=== PATIENT | male | born 1930 | race Caucasian/White ===

== ENCOUNTER 2018-01-26 17:10 | Emergency (ER) | payer MEDICARE, OTHER ==
[2018-01-26 17:47] LABS: URINE APPEARANCE CLEAR; URINE BILIRUBIN NEGATIVE (NEGATIVE); URINE BLOOD NEGATIVE (NEGATIVE); URINE COLOR YELLOW; URINE GLUCOSE (UA) NEGATIVE (NEGATIVE); URINE KETONE NEGATIVE (NEGATIVE); URINE LEUKOCYTE ESTERASE NEGATIVE (NEGATIVE); URINE NITRITE NEGATIVE (NEGATIVE); URINE PROTEIN NEGATIVE (NEGATIVE); URINE UROBILINOGEN 0.2 E.U./dL (0.20 - 1.00)
--- NOTE | 2018-01-26 18:16 | Emergency Department Record ---
History of Present Illness - General Chief complaint: Male Urogenital Problem Stated complaint: CANT URINATE Time Seen by Provider: 01/26/18 18:00 Source: Patient, Family Mode of Arrival: Wheelchair Limitations: No limitations - History of Present Illness Initial comments: Unable to urinate since early thins AM Pressure without fever or burning. Hx of prostate cancer under care of urologist. Onset/Timin -: Hour(s) Location: Abdomen Radiation: None Severity: Moderate Severity scale (1-10): 4 Quality: Aching Consistency: Constant Improves with: None Worsens with: None Reports: Dysuria - Related Data Sexually active: No Home Medications Medication Instructions Recorded Confirmed Last Taken Betamethasone/Propylene Glyc 15 gm TP BID 01/26/18 01/26/18 Unknown [Diprolene 0.05% Ointment] Hydrochlorothiazide [Hctz] 25 mg PO DAILY 01/26/18 01/26/18 Unknown Previous Rx's Medication Instructions Recorded Sulfamethoxazole/Trimethoprim 1 each PO BID 5 Days #10 tablet 01/26/18 [Bactrim Ds Tablet] Allergies Allergy/AdvReac Type Severity Reaction Status Date / Time iodine Allergy RASH Verified 06/23/16 22:12 Penicillins Allergy PT UNSURE Verified 01/26/18 17:20 OF REACTION Travel Screening - Travel/Exposure Within Last 30 Days Have you traveled within the last 30 days?: No Review of Systems Constitutional: Denies: Chills, Fever Eyes: Denies: Eye pain ENT: Denies: Congestion Respiratory: Denies: Cough Cardiovascular: Denies: Arrhythmia, Chest pain Endocrine: Denies: Fatigue Gastrointestinal: Denies: Abdominal pain Genitourinary: Reports: Retention, Urgency. Denies: Discharge, Dysuria, Frequency Musculoskeletal: Denies: Arthralgia Skin: Denies: Bruising Neurological: Denies: Abnormal gait Psychiatric: Denies: Anxiety Past Medical History - SOCIAL HISTORY Smoking Status: Former smoker Alcohol Use: None Drug Use: None - RESPIRATORY Hx Respiratory Disorders: Yes Hx Asthma: Yes (uses inhaler prn) Hx Bronchitis: Yes Hx Pneumonia: Yes - CARDIOVASCULAR Hx Cardio Disorders: Yes Hx Hypertension: Yes - NEURO Hx Neuro Disorders: Yes Hx Dizziness: Yes (vertigo) Hx Weakness: Yes (legs) - GI Hx GI Disorders: No Comment:: constipation - Hx Genitourinary Disorders: Yes Hx Prostate Problems: Yes (cancer no surgery) - ENDOCRINE Hx Endocrine Disorders: No - MUSCULOSKELETAL Hx Musculoskeletal Disorders: Yes Hx Arthritis: Yes Hx Gout: Yes - PSYCH Hx Psych Problems: No - HEMATOLOGY/ONCOLOGY Hx Hematology/Oncology Disorders: No Hx Cancer: Yes (prostate) Family Medical History Any Significant Family History?: No Physical Exam - General General Appearance: Alert, Oriented x3, Cooperative, Moderate distress Limitations: No limitations - Head Head exam: Atraumatic - Eye Eye exam: Normal appearance - ENT ENT exam: Normal exam - Neck Neck exam: Normal inspection - Respiratory Respiratory exam: Normal lung sounds bilaterally. negative: Rhonchi, Wheezes - Cardiovascular Cardiovascular Exam: Regular rate, Normal rhythm - GI/Abdominal GI/Abdominal exam: Soft. negative: Distended, Rebound, Tenderness - Rectal Rectal exam: Deferred - exam: negative: Circumcision, Scrotal swelling, Testicular tenderness, Urethral discharge - Extremities Extremities exam: Pedal edema. negative: Tenderness - Back Back exam: Denies: CVA tenderness (R), CVA tenderness (L) - Neurological Neurological exam: Alert, Normal gait, Oriented X3 - Psychiatric Psychiatric exam: Normal affect, Normal mood - Skin Skin exam: negative: Abrasion Course Vital Signs 01/26/18 17:18 Temperature 98.1 F Pulse Rate 89 Respiratory 20 Rate Blood Pressure 151/73 Pulse Ox 96 - Reevaluation(s) Reevaluation #1: 01/26/18 18:58 Seen on arrival with . Cath placed with return of urine and relief of discomfort. Sent to lab without infection. Instructed on use of leg bag with . Will follow with established urology in 2 days. Return here if issues. Medical Decision Making - Management Options MDM Management: No Additional Work-up Planned - Data Complexity MDM Data: Labs Ordered and/or Reviewed - Lab Data Lab Results 01/26/18 Range/Units 17:40 Urine Color Yellow Urine Appearance Clear Urine pH 7.0 (5.0-8.0) Ur Specific [place] 1.015 (1.002-1.030) Urine Protein Negative (NEGATIVE) Urine Glucose (UA) Negative (NEGATIVE) Urine Ketones Negative (NEGATIVE) Urine Blood Negative (NEGATIVE) Urine Nitrite Negative (NEGATIVE) Urine Bilirubin Negative (NEGATIVE) Urine Urobilinogen 0.2 (0.20 - 1.00) E.U./dL Ur Leukocyte Esterase Negative (NEGATIVE) Disposition Disposition: Discharge Clinical Impression: Acute urinary retention Disposition: Home, Self-Care Condition: (2) Stable Instructions: Urinary Retention in Men (ED) Additional Instructions: See urologist in 2 days Prescriptions: Sulfamethoxazole/Trimethoprim [Bactrim Ds Tablet] 1 each PO BID 5 Days #10 tablet Referrals: CLAU RAMIREZ M.D. [MEDICAL DOCTOR] - Forms: Patient Portal Access Quality - Quality Measures Quality Measures: N/A - Blood Pressure Screening Does Patient Have Any of the Following: Active Dx of HTN Blood Pressure Classification: Hypertensive Reading Systolic Measurement: 151 Diastolic Measurement: 73 Screening for High Blood Pressure: Patient Exclusion, Hx of HTN [G9744]
[2018-01-26] MEDS ORDERED: TMP/SMZ 160MG/800MG TAB PO ONE (18:49)
== END 2018-01-26 19:03 | disposition home or self-care (01) ==
LOC: ER 17:10
DX: R33.8 Other retention of urine (principal); I10 Essential (primary) hypertension; Z87.891 Personal history of nicotine dependence; Z85.46 Personal history of malignant neoplasm of prostate; E78.00 Pure hypercholesterolemia, unspecified; M10.9 Gout, unspecified; Z12.5 Encounter for screening for malignant neoplasm of prostate; Z00.00 Encounter for general adult medical examination without abnormal findings
CPT/HCPCS: 80048; 80061; 81003; 84450; 84460; 84550; 85025; 99283; G0103

== ENCOUNTER 2018-04-07 18:06 | Emergency (ER) | payer MEDICARE, OTHER ==
[2018-04-07] MEDS ORDERED: LIDOCAINE UROJECT 10 ML APPL MM ONE (18:56)
--- NOTE | 2018-04-07 19:20 | Emergency Department Record ---
History of Present Illness - General Chief complaint: Male Urogenital Problem Stated complaint: CATH PATIENT Time Seen by Provider: 04/07/18 18:39 Source: Patient Mode of Arrival: Ambulatory Limitations: No limitations - History of Present Illness Initial comments: pt here for covington placement. his home nurse tried to replace it today and was unable to get it in so he was sent to the hospital Complaint: Other Onset/Timin -: Minutes(s) Improves with: Urination Reports: Urinary retention - Related Data Sexually active: No Previous Rx's Medication Instructions Recorded Ciprofloxacin HCl [Cipro] 500 mg PO Q12HR #6 tablet 04/07/18 Allergies Allergy/AdvReac Type Severity Reaction Status Date / Time iodine Allergy RASH Verified 04/07/18 18:30 Penicillins Allergy PT UNSURE Verified 04/07/18 18:30 OF REACTION Travel Screening - Travel/Exposure Within Last 30 Days Have you traveled within the last 30 days?: No - Travel/Exposure Within Last Year Have you traveled outside the [place] in the last year?: No - Additonal Travel Details Have you been exposed to anyone with a communicable illness?: No - Travel Symptoms Symptom Screening: None Review of Systems Reviewed: No additional complaints except as noted below Constitutional: Reports: As per HPI. Denies: Chills, Fever, Malaise, Night sweats, Weakness, Weight change Eyes: Reports: As per HPI. Denies: Eye discharge, Eye pain, Photophobia, Vision change ENT: Reports: As per HPI. Denies: Congestion, Dental pain, Ear pain, Epistaxis , Hearing loss, Throat pain Respiratory: Reports: As per HPI. Denies: Cough, Dyspnea, Hemoptysis, Stridor, Wheezes Cardiovascular: Reports: As per HPI. Denies: Arrhythmia, Chest pain, Dyspnea on exertion, Edema, Murmurs, Orthopnea, Palpitations, Paroxysmal nocturnal dyspnea, Rheumatic Fever, Syncope Endocrine: Reports: As per HPI. Denies: Fatigue, Heat or cold intolerance, Polydipsia, Polyuria Gastrointestinal: Reports: As per HPI. Denies: Abdominal pain, Constipation, Diarrhea, Hematemesis, Hematochezia, Melena, Nausea, Vomiting Genitourinary: Reports: As per HPI, Retention. Denies: Dysuria, Frequency, Hematuria, Incontinence, Testicular pain, Testicular mass, Urgency Musculoskeletal: Reports: As per HPI. Denies: Arthralgia, Back pain, Gout, Joint swelling, Myalgia, Neck pain Skin: Reports: As per HPI. Denies: Bruising, Change in color, Change in hair/ nails, Lesions, Pruritus, Rash Neurological: Reports: As per HPI. Denies: Abnormal gait, Confusion, Headache, Numbness, Paresthesias, Seizure, Tingling, Tremors, Vertigo, Weakness Psychiatric: Reports: As per HPI. Denies: Anxiety, Auditory hallucinations, Depression, Homicidal thoughts, Suicidal thoughts, Visual hallucinations Hematological/Lymphatic: Reports: As per HPI. Denies: Anemia, Blood Clots, Easy bleeding, Easy bruising, Swollen glands Past Medical History - SOCIAL HISTORY Smoking Status: Former smoker Alcohol Use: None Drug Use: None - RESPIRATORY Hx Respiratory Disorders: Yes Hx Asthma: Yes (uses inhaler prn) Hx Bronchitis: Yes Hx Pneumonia: Yes - CARDIOVASCULAR Hx Cardio Disorders: Yes Hx Hypertension: Yes - NEURO Hx Neuro Disorders: Yes Hx Dizziness: Yes (vertigo) Hx Weakness: Yes (legs) - GI Hx GI Disorders: No Comment:: constipation - Hx Genitourinary Disorders: Yes Hx Prostate Problems: Yes (cancer no surgery) - ENDOCRINE Hx Endocrine Disorders: No - MUSCULOSKELETAL Hx Musculoskeletal Disorders: Yes Hx Arthritis: Yes Hx Gout: Yes - PSYCH Hx Psych Problems: No - HEMATOLOGY/ONCOLOGY Hx Hematology/Oncology Disorders: No Hx Cancer: Yes (prostate) Family Medical History Any Significant Family History?: No Physical Exam - General General Appearance: Alert, Oriented x3, Cooperative, Mild distress - Head Head exam: Normal inspection - Eye Eye exam: Normal appearance, PERRL, EOMI Pupils: Normal accommodation - ENT ENT exam: Normal exam, Mucous membranes moist, Normal external ear exam, Normal orophraynx Ear exam: Normal external inspection. negative: External canal tenderness Nasal Exam: Normal inspection. negative: Discharge, Sinus tenderness Mouth exam: Normal external inspection, Tongue normal Teeth exam: Normal inspection. negative: Dental caries Throat exam: Normal inspection. negative: Tonsillar erythema, Tonsillar exudate - Neck Neck exam: Normal inspection, Full ROM. negative: Tenderness - Respiratory Respiratory exam: Normal lung sounds bilaterally. negative: Respiratory distress - Cardiovascular Cardiovascular Exam: Regular rate, Normal rhythm, Normal heart sounds - GI/Abdominal GI/Abdominal exam: Soft, Normal bowel sounds. negative: Tenderness - Rectal Rectal exam: Deferred - exam: Deferred - Extremities Extremities exam: Normal inspection, Full ROM, Normal capillary refill. negative: Tenderness - Back Back exam: Reports: Normal inspection, Full ROM. Denies: Muscle spasm, Rash noted, Tenderness - Neurological Neurological exam: Alert, CN II-XII intact, Normal gait, Oriented X3 - Psychiatric Psychiatric exam: Normal affect, Normal mood - Skin Skin exam: Dry, Intact, Normal color, Warm Course Vital Signs 04/07/18 18:24 Temperature 97.7 F Pulse Rate 94 H Respiratory 20 Rate Blood Pressure 134/67 Pulse Ox 94 L Disposition Disposition: Discharge Clinical Impression: Urinary retention UTI (urinary tract infection) Qualifiers: Urinary tract infection type: acute cystitis Hematuria presence: without hematuria Qualified Code(s): N30.00 - Acute cystitis without hematuria Disposition: Home, Self-Care Condition: (1) Good Instructions: Urinary Retention in Men (ED), Urinary Tract Infection in Men (ED ) Additional Instructions: follow up with urologist. return sooner if worse Prescriptions: Ciprofloxacin HCl [Cipro] 500 mg PO Q12HR #6 tablet Forms: Patient Portal Access Quality - Quality Measures Quality Measures: N/A - Blood Pressure Screening Does Patient Have Any of the Following: No Blood Pressure Classification: Pre-Hypertensive BP Reading Systolic Measurement: 134 Diastolic Measurement: 67 Screening for High Blood Pressure: < Pre-Hypertensive BP, F/U Documented > [ G8950] Pre-Hypertensive Follow-up Interventions: Follow-up with rescreen every year.
[2018-04-07 19:29] LABS: URINE APPEARANCE CLEAR; URINE BILIRUBIN NEGATIVE (NEGATIVE); URINE BLOOD MODERATE (NEGATIVE); URINE COLOR YELLOW; URINE GLUCOSE (UA) NEGATIVE (NEGATIVE); URINE KETONE NEGATIVE (NEGATIVE); URINE LEUKOCYTE ESTERASE SMALL (NEGATIVE); URINE NITRITE NEGATIVE (NEGATIVE); URINE PROTEIN NEGATIVE (NEGATIVE); URINE UROBILINOGEN 0.2 E.U./dL (0.20 - 1.00)
[2018-04-07 19:36] LABS: URINE BACTERIA FEW; URINE EPITHELIAL CELLS 0 - 2 (FEW)
== END 2018-04-07 19:56 | disposition home or self-care (01) ==
LOC: ER 18:06
DX: N30.00 Acute cystitis without hematuria (principal); R33.9 Retention of urine, unspecified; I10 Essential (primary) hypertension; Z87.891 Personal history of nicotine dependence; C61 Malignant neoplasm of prostate
CPT/HCPCS: 81001; 99283

== ENCOUNTER 2018-05-07 16:43 | Emergency (ER) | payer MEDICARE, OTHER ==
--- NOTE | 2018-05-07 17:48 | Emergency Department Record ---
History of Present Illness - General Chief complaint: Male Urogenital Problem Stated complaint: NEED A CATH PUT IN Time Seen by Provider: 05/07/18 17:41 Source: Patient Mode of Arrival: Wheelchair - History of Present Illness Initial comments: visiting nurses removed his covington and could not replace his covington about 2 hours ago and they could not put the covington back in. they sent him to the ED to place a covington and covington placed and will obtain a urine Onset/Timin -: Hour(s) Indwelling catheter Reports: Denies other symptoms - Related Data Previous Rx's Medication Instructions Recorded Ciprofloxacin HCl [Cipro] 500 mg PO Q12HR #20 tablet 05/07/18 Allergies Allergy/AdvReac Type Severity Reaction Status Date / Time iodine Allergy RASH Verified 05/07/18 17:09 Penicillins Allergy PT UNSURE Verified 05/07/18 17:09 OF REACTION Travel Screening - Travel/Exposure Within Last 30 Days Have you traveled within the last 30 days?: No Review of Systems Reviewed: No additional complaints except as noted below Constitutional: Reports: As per HPI. Denies: Chills, Fever, Malaise, Night sweats, Weakness, Weight change Eyes: Reports: As per HPI. Denies: Eye discharge, Eye pain, Photophobia, Vision change ENT: Reports: As per HPI. Denies: Congestion, Dental pain, Ear pain, Epistaxis , Hearing loss, Throat pain Respiratory: Reports: As per HPI. Denies: Cough, Dyspnea, Hemoptysis, Stridor, Wheezes Cardiovascular: Reports: As per HPI. Denies: Arrhythmia, Chest pain, Dyspnea on exertion, Edema, Murmurs, Orthopnea, Palpitations, Paroxysmal nocturnal dyspnea, Rheumatic Fever, Syncope Endocrine: Reports: As per HPI. Denies: Fatigue, Heat or cold intolerance, Polydipsia, Polyuria Gastrointestinal: Reports: As per HPI. Denies: Abdominal pain, Constipation, Diarrhea, Hematemesis, Hematochezia, Melena, Nausea, Vomiting Genitourinary: Reports: As per HPI. Denies: Dysuria, Frequency, Hematuria, Incontinence, Retention, Testicular pain, Testicular mass, Urgency Musculoskeletal: Reports: As per HPI. Denies: Arthralgia, Back pain, Gout, Joint swelling, Myalgia, Neck pain Skin: Reports: As per HPI. Denies: Bruising, Change in color, Change in hair/ nails, Lesions, Pruritus, Rash Neurological: Reports: As per HPI. Denies: Abnormal gait, Confusion, Headache, Numbness, Paresthesias, Seizure, Tingling, Tremors, Vertigo, Weakness Psychiatric: Reports: As per HPI. Denies: Anxiety, Auditory hallucinations, Depression, Homicidal thoughts, Suicidal thoughts, Visual hallucinations Hematological/Lymphatic: Reports: As per HPI. Denies: Anemia, Blood Clots, Easy bleeding, Easy bruising, Swollen glands Past Medical History - SOCIAL HISTORY Smoking Status: Former smoker Alcohol Use: None Drug Use: None - RESPIRATORY Hx Respiratory Disorders: Yes Hx Asthma: Yes (uses inhaler prn) Hx Bronchitis: Yes Hx Pneumonia: Yes - CARDIOVASCULAR Hx Cardio Disorders: Yes Hx Hypertension: Yes - NEURO Hx Neuro Disorders: Yes Hx Dizziness: Yes (vertigo) Hx Weakness: Yes (legs) - GI Hx GI Disorders: No Comment:: constipation - Hx Genitourinary Disorders: Yes Hx Prostate Problems: Yes (cancer no surgery) - ENDOCRINE Hx Endocrine Disorders: No - MUSCULOSKELETAL Hx Musculoskeletal Disorders: Yes Hx Arthritis: Yes Hx Gout: Yes - PSYCH Hx Psych Problems: No - HEMATOLOGY/ONCOLOGY Hx Hematology/Oncology Disorders: Yes Hx Cancer: Yes (prostate) Family Medical History Any Significant Family History?: No Physical Exam - General General Appearance: Alert, Oriented x3, Cooperative, No acute distress - Head Head exam: Normal inspection - Eye Eye exam: Normal appearance, PERRL Pupils: Normal accommodation - ENT ENT exam: Normal exam, Mucous membranes moist, Normal external ear exam, Normal orophraynx, TM's normal bilaterally Ear exam: Normal external inspection. negative: External canal tenderness Nasal Exam: Normal inspection. negative: Discharge, Sinus tenderness Mouth exam: Normal external inspection, Tongue normal Teeth exam: Normal inspection. negative: Dental caries Throat exam: Normal inspection. negative: Tonsillar erythema, Tonsillar exudate - Neck Neck exam: Normal inspection, Full ROM. negative: Tenderness - Respiratory Respiratory exam: Normal lung sounds bilaterally. negative: Respiratory distress - Cardiovascular Cardiovascular Exam: Regular rate, Normal rhythm, Normal heart sounds - GI/Abdominal GI/Abdominal exam: Soft, Normal bowel sounds. negative: Tenderness - Rectal Rectal exam: Deferred - exam: Deferred - Extremities Extremities exam: Normal inspection, Full ROM, Normal capillary refill. negative: Tenderness - Back Back exam: Reports: Normal inspection, Full ROM. Denies: Muscle spasm, Rash noted, Tenderness - Neurological Neurological exam: Alert, Normal gait, Oriented X3, Reflexes normal - Psychiatric Psychiatric exam: Normal affect, Normal mood - Skin Skin exam: Dry, Intact, Normal color, Warm Course Vital Signs 05/07/18 17:05 Temperature 97.9 F Pulse Rate 75 Respiratory 20 Rate Blood Pressure 148/79 Pulse Ox 95 - Reevaluation(s) Reevaluation #1: covington placed by nursing 05/07/18 17:59 Disposition Clinical Impression: Urinary retention, Prostate cancer, UTI (urinary tract infection) Disposition: Home, Self-Care Condition: (1) Good Instructions: Urinary Retention in Men (ED) Additional Instructions: follow up with Dr Machuca in one week Prescriptions: Ciprofloxacin HCl [Cipro] 500 mg PO Q12HR #20 tablet Forms: Patient Portal Access Time of Disposition: 17:47 Quality - Quality Measures Quality Measures: N/A - Blood Pressure Screening Does Patient Have Any of the Following: No, Active Dx of HTN Blood Pressure Classification: Hypertensive Reading Systolic Measurement: 148 Diastolic Measurement: 79 Screening for High Blood Pressure: Patient Exclusion, Hx of HTN [G9744]
[2018-05-07 18:22] LABS: URINE APPEARANCE SL CLOUDY; URINE BILIRUBIN NEGATIVE (NEGATIVE); URINE BLOOD TRACE-I (NEGATIVE); URINE COLOR YELLOW; URINE GLUCOSE (UA) NEGATIVE (NEGATIVE); URINE KETONE NEGATIVE (NEGATIVE); URINE LEUKOCYTE ESTERASE LARGE (NEGATIVE); URINE NITRITE NEGATIVE (NEGATIVE); URINE PROTEIN NEGATIVE (NEGATIVE); URINE UROBILINOGEN 0.2 E.U./dL (0.20 - 1.00)
[2018-05-07 18:35] LABS: URINE BACTERIA 2+; URINE EPITHELIAL CELLS 0 - 2 (FEW); URINE RBC 0 - 2 (NONE SEEN)
[2018-05-07] MEDS ORDERED: CIPROFLOXACIN HCL 500 MG TABLET PO ONE (18:35)
[2018-05-07 18:36] LABS: URINE AMORPHOUS SEDIMENT 2+
== END 2018-05-07 18:50 | disposition home or self-care (01) ==
LOC: ER 16:43
DX: N39.0 Urinary tract infection, site not specified (principal); R33.9 Retention of urine, unspecified; I10 Essential (primary) hypertension; Z87.891 Personal history of nicotine dependence; Z85.46 Personal history of malignant neoplasm of prostate
CPT/HCPCS: 81001; 99283

== ENCOUNTER 2019-09-18 05:27 | Inpatient (IN) | payer MEDICARE, OTHER ==
[2019-09-18] MEDS ORDERED: 0.9 % SODIUM CHLORIDE 1000ML 500 ML IV SCH (05:30)
--- NOTE | 2019-09-18 05:36 | Emergency Department Record ---
History of Present Illness - General Chief complaint: Weakness Stated complaint: WEAKNESS Time Seen by Provider: 09/18/19 05:29 Source: Patient, EMS Mode of Arrival: EMS Limitations: No limitations - History of Present Illness Initial comments: 89 yo male presents to ED for evaluation of worsening generalized weakness over the past several days. Patient was attempting to transfer from his toilet to his wheelchair when he slipped from the toilet, denies injury on examination. Patient denies fevers, chills, or recent illness. Patient denies use of anticoagulation medications as well. Patient denies focal weakness or chest pain on examination. Patient also denies extremity weakness or tingling. MD Complaint: Generalized weakness -: Days(s) Location: Generalized Severity: Moderate Consistency: Constant Improves with: None Worsens with: Exertion Associated Symptoms: Denies other symptoms - [place] Coma Scale Eye Response: (4) Open spontaneously Motor Response: (6) Obeys commands Verbal Response: (5) Oriented [place] Total: 15 - Related Data Home Medications Medication Instructions Recorded Confirmed Last Taken Amlodipine Besylate/Benazepril 1 cap PO DAILY 09/18/19 09/18/19 Unknown [Lotrel 10-20 mg Capsule] Amoxicillin/Potassium Clav 1 tab PO BID 09/18/19 09/18/19 Unknown [Augmentin 875-125 Tablet] Allergies Allergy/AdvReac Type Severity Reaction Status Date / Time iodine Allergy RASH Verified 05/07/18 17:09 Penicillins Allergy PT UNSURE Verified 05/07/18 17:09 OF REACTION Review of Systems Constitutional: Reports: Weakness. Denies: Chills, Fever, Malaise, Night sweats Eyes: Denies: Eye discharge, Eye pain ENT: Denies: Congestion, Ear pain, Epistaxis Respiratory: Denies: Cough, Dyspnea Cardiovascular: Denies: Chest pain, Dyspnea on exertion Endocrine: Denies: Fatigue, Heat or cold intolerance Gastrointestinal: Denies: Abdominal pain, Nausea, Vomiting Genitourinary: Denies: Incontinence, Retention Musculoskeletal: Denies: Arthralgia, Back pain Skin: Denies: Bruising, Change in color Neurological: Denies: Abnormal gait, Confusion, Headache, Seizure Psychiatric: Denies: Anxiety Hematological/Lymphatic: Denies: Anemia, Blood Clots Past Medical History - SOCIAL HISTORY Smoking Status: Former smoker Drug Use: None - RESPIRATORY Hx Respiratory Disorders: Yes Hx Asthma: Yes (uses inhaler prn) Hx Bronchitis: Yes Hx Pneumonia: Yes - CARDIOVASCULAR Hx Cardio Disorders: Yes Hx Hypertension: Yes - NEURO Hx Neuro Disorders: Yes Hx Dizziness: Yes (vertigo) Hx Weakness: Yes (legs) - GI Hx GI Disorders: No Comment:: constipation - Hx Genitourinary Disorders: Yes Hx Prostate Problems: Yes (cancer no surgery) - ENDOCRINE Hx Endocrine Disorders: No - MUSCULOSKELETAL Hx Musculoskeletal Disorders: Yes Hx Arthritis: Yes Hx Gout: Yes - PSYCH Hx Psych Problems: No - HEMATOLOGY/ONCOLOGY Hx Hematology/Oncology Disorders: Yes Hx Cancer: Yes (prostate) Physical Exam - General General Appearance: Alert, Oriented x3, Cooperative, Mild distress Limitations: No limitations - Head Head exam: Atraumatic, Normocephalic, Normal inspection Head exam detail: negative: Abrasion, Contusion, Cuevas's sign, General tenderness, Hematoma, Laceration - Eye Eye exam: Normal appearance. negative: Conjunctival injection, Periorbital swelling, Periorbital tenderness, Scleral icterus - ENT Ear exam: negative: Auricular hematoma, Auricular trauma Nasal Exam: negative: Active bleeding, Discharge, Dried blood, Foreign body Mouth exam: negative: Drooling, Laceration, Muffled voice, Tongue elevation - Neck Neck exam: Normal inspection. negative: Meningismus, Tenderness - Respiratory Respiratory exam: Normal lung sounds bilaterally. negative: Rales, Respiratory distress, Rhonchi, Stridor - Cardiovascular Cardiovascular Exam: Regular rate, Normal rhythm, Normal heart sounds - GI/Abdominal GI/Abdominal exam: Soft. negative: Rebound, Rigid, Tenderness - Rectal Rectal exam: Deferred - exam: Deferred - Extremities Extremities exam: Full ROM (at baseline per patient), Tenderness, Other (Mild TT P along the distal tib/fib right with mild external rotation present, chronic venous changes are present, strong DPP.). negative: Pedal edema - Back Back exam: Denies: CVA tenderness (R), CVA tenderness (L) - Neurological Neurological exam: Alert, Oriented X3. negative: Motor sensory deficit - Psychiatric Psychiatric exam: Normal affect, Normal mood - Skin Skin exam: Normal color. negative: Abrasion Type of lesion: negative: abrasion Course - Reevaluation(s) Reevaluation #1: 09/18/19 06:34 EKG: NSR 93 LAD, normal intervals No acute ST-T wave changes Unchanged from previous CT Head: No acute process CXR: No acute process Right ankle: Minimally displaced distal fibula fracture Laboratory studies were reviewed and appear grossly unremarkable for an acute process except for the following: Hgb 10.6 (previous 11.1) Troponin 0.011 UA demonstrates 4+ Bacteria 3-5 WBCs 0-2 RBCs Will initiate Rocephin the ED, admit for further evaluation. Fracture boot was applied to the distal lower extremity as well prior to adm ission Reevaluation #2: 09/18/19 07:16 Case was discussed with Dr. Ramirez, will place the patient in a fracture boot with consultation for Dr. Ramirez. Patient is non-weight bearing at his baseline as well. Case was then discussed with Dr. Pepe, will accept admission at this time. Would prefer Rocephin over Levaquin, will order for the floor. Medical Decision Making - Lab Data Result diagrams: 09/18/19 05:50 09/18/19 05:50 Disposition Disposition: Admit Clinical Impression: Generalized weakness UTI (urinary tract infection) Qualifiers: Urinary tract infection type: site unspecified Hematuria presence: without hematuria Qualified Code(s): N39.0 - Urinary tract infection, site not specified Anemia Qualifiers: Anemia type: unspecified type Qualified Code(s): D64.9 - Anemia, unspecified Fracture of distal fibula Qualifiers: Encounter type: initial encounter Fracture type: closed Fracture morphology: other fracture Laterality: right Qualified Code(s): S82.831A - Other fracture of upper and lower end of right fibula, initial encounter for closed fracture Disposition: Still a Patient at [facility] Decision to Admit: Admit from ER Decision to Admit Date: 09/18/19 Decision to Admit Time: 07:20 Condition: (2) Stable Forms: Patient Portal Access Time of Disposition: 07:20 Quality - Quality Measures Quality Measures: N/A - Blood Pressure Screening Does Patient Have Any of the Following: No Blood Pressure Classification: Pre-Hypertensive BP Reading Systolic Measurement: 120 Diastolic Measurement: 80 Screening for High Blood Pressure: < Pre-Hypertensive BP, F/U Documented > [G8950] Pre-Hypertensive Follow-up Interventions: Referral to alternative/primary care provider.
[2019-09-18 05:59] LABS: ABSOLUTE NEUTROPHIL COUNT 5.46; BASO % 0.4 % (0-6); EOS % 2.7 % (0-6); HEMATOCRIT 34.4 % (42.0-52.0); HEMOGLOBIN 10.6 gm/dl (14.0-18.0); LYMPH % 19.3 % (16-45); MEAN CELL VOLUME 104.9 fl (81-97); MEAN CORPUSCULAR HEMOGLOBIN 32.3 pg (27-33); MEAN CORPUSCULAR HGB CONC 30.8 g/dl (32-36); MEAN PLATELET VOLUME 8.4 fl (7.4-10.4); MONO % 10.6 % (0-9); PLATELET COUNT 236 K/uL (130-400); RED BLOOD COUNT 3.28 M/uL (4.40-5.70); RED CELL DISTRIBUTION WIDTH 14.4 % (11.5-14.5); WHITE BLOOD COUNT W/O DIFF 8.1 K/uL (4.2-12.2)
[2019-09-18 06:15] LABS: LACTIC ACID 1.9 mmol/L (0.5-2.2)
[2019-09-18 06:21] LABS: URINE APPEARANCE CLOUDY; URINE BILIRUBIN NEGATIVE (NEGATIVE); URINE BLOOD NEGATIVE (NEGATIVE); URINE COLOR YELLOW; URINE GLUCOSE (UA) NEGATIVE (NEGATIVE); URINE KETONE NEGATIVE (NEGATIVE); URINE LEUKOCYTE ESTERASE TRACE (NEGATIVE); URINE NITRITE POSITIVE (NEGATIVE); URINE PROTEIN NEGATIVE (NEGATIVE); URINE UROBILINOGEN 0.2 E.U./dL (0.20 - 1.00)
--- NOTE | 2019-09-18 06:27 | RADIOLOGY REPORT ---
EXAMINATION: Single View Chest EXAM DATE: 09/18/2019 6:23 AM TECHNIQUE: Single view chest INDICATION: weakness COMPARISON: June 23, 2016 ENCOUNTER: Not applicable FINDINGS: The heart, mediastinum, and pulmonary vasculature are normal. No lung consolidation or pleural effu sions are present. No pneumothorax is present. IMPRESSION: No acute radiographic findings. Dictated by: Margie Pena MD on 09/18/2019 6:25 AM. .
[2019-09-18 06:34] LABS: ALBUMIN 3.1 g/dL (4.0-5.0); BLOOD UREA NITROGEN 27 mg/dL (8-23); CREATININE 1.1 mg/dL (0.7-1.2); EST GLOMERULAR FILTRATION RATE > 60 mL/min; GLUCOSE,RANDOM 110 mg/dL (74-109)
[2019-09-18 06:35] LABS: ALB/GLOB RATIO 0.9 (1.1-1.8); ALKALINE PHOSPHATASE 48 U/L (40-129); ALT/SGPT 12 U/L (<41); AST/SGOT 22 U/L (10.0-50.0); TOTAL PROTEIN 6.5 g/dL (6.6-8.7)
--- NOTE | 2019-09-18 06:36 | CT SCAN REPORT ---
EXAMINATION: CT Head without IV Contrast EXAM DATE: 09/18/2019 6:24 AM TECHNIQUE: Standard protocol CT images of the head were obtained without intravenous contrast. Babb l and sagittal reconstructed images were created. INDICATION: weakness COMPARISON: 06/23/2016 HAND DOMINANCE: Unknown. ENCOUNTER: Not applicable FINDINGS: 1. There is no intracranial mass, midline shift, extraaxial fluid collection or acute hemorrhage. 2. The ventricles, sulci and cisterns are normal for age. 3. There are no suspicious area of altered attenuation. No loss of hayes-white differentiation. No ev olved infarction is identified. Mild probable chronic small vessel ischemic change in the white matte r. 4. There is no fracture. 5. There is some bubbly fluid within the left sphenoid sinus and there is bilateral sphenoid periost eal thickening suggesting chronic inflammation. Mastoid cells are well pneumatized. Ocular lens repla cements noted. IMPRESSION: No evidence of an acute intracranial process. Dictated by: Aung Emmanuel MD on 09/18/2019 6:30 AM. .
[2019-09-18 06:43] LABS: URINE RBC 0 - 2 (NONE SEEN)
[2019-09-18 06:45] LABS: URINE BACTERIA 4+; URINE MUCUS LIGHT
[2019-09-18] MEDS ORDERED: LEVOFLOXACIN 250MG IVPB 250 MG/50 ML BAG IVPB ONE (07:08)
--- NOTE | 2019-09-18 07:11 | RADIOLOGY REPORT ---
EXAMINATION: Right Ankle, Complete Minimum Three Views EXAM DATE: 09/18/2019 7:00 AM TECHNIQUE: AP, lateral, and oblique INDICATION: injury COMPARISON: None ENCOUNTER: Initial FINDINGS: There is diffuse demineralization of the osseous structures. There is a transverse fracture through t he distal fibula. There is mild widening of the ankle mortise. IMPRESSION: Fracture through the shaft of the distal fibula with mild widening of the ankle mortise. No other fra ctures are seen but could be occult due to marked demineralization. Dictated by: Margie Pena MD on 09/18/2019 7:02 AM. .
[2019-09-18] MEDS ORDERED: ZINC OXIDE 28.35 GM TUBE TOP ONE (09:04)
[2019-09-18] MEDS ORDERED: CEFTRIAXONE 1GM/50ML BAG 1 GM/50 ML BAG IVPB ONE (09:32)
[2019-09-18] MEDS ORDERED: AMLODIPINE BESYLATE 5MG TAB PO SCH (10:00)
[2019-09-18] MEDS ORDERED: LOSARTAN POTASSIUM 25 MG TABLET PO SCH (10:00)
[2019-09-18] MEDS ORDERED: BREO (FLUTICASONE/VILANTEROL) 200MCG/25MCG INHALER INH SCH (10:00)
[2019-09-18] MEDS ORDERED: BENAZEPRIL 20 MG TABLET PO SCH (10:00)
[2019-09-18] MEDS ORDERED: ALLOPURINOL 100 MG TAB PO SCH (10:00)
[2019-09-18] MEDS ORDERED: AMOXICILLIN/POTASSIUM CLAV 875MG/125MG TABLET PO SCH (10:00)
[2019-09-18] MEDS: BENAZEPRIL PO SCH (11:00)
[2019-09-18] MEDS: ALLOPURINOL 300 MG PO SCH (11:00)
[2019-09-18] MEDS: CLAVULANATE MC SCH ×2 (11:00→22:02)
[2019-09-18] MEDS: AMLODIPINE PO SCH (11:00)
[2019-09-18] MEDS: LOSARTAN 50 MG PO SCH (11:00)
[2019-09-18] MEDS: AMOXICILLIN MC SCH ×2 (11:00→22:02)
[2019-09-18] MEDS: BETAMETHASONE VAL 0.1% TOP SCH ×2 (11:26→22:02)
[2019-09-18] MEDS: ASPIRIN 81 MG CHEWABLE TABLET PO SCH (11:26)
[2019-09-18] MEDS: FENOFIBRATE NANOCRYSTALLIZED 145 MG PO SCH (11:26)
[2019-09-18] MEDS: SALMETEROL MC SCH ×2 (11:28→22:05)
[2019-09-18] MEDS: FLUTICASONE MC SCH ×2 (11:28→22:05)
[2019-09-18] MEDS ORDERED: PNEUM 13-VAL/PF 0.5 ML IM ONE (12:00)
--- NOTE | 2019-09-18 12:50 | History & Physical ---
History of Present Illness - Date of Service Date of Service for History & Physical: 09/18/19 - History of Present Illness Admitting Diagnosis: Generalized weakness. UTI. Distal fibula fracture. Chronic anemia History of Present Illness: PMHx: HTN, Gout, Anemia, indwelling catheter. ED course: 89 yo male presents to ED for evaluation of worsening generalized weakness over the past day. Patient was attempting to transfer from his toilet to his eelchair when he slipped from the toilet, onto his knees. Patient denies fevers, chills, or recent illness. Patient denies use of anticoagulation medications as well. Patient denies focal weakness or chest pain on examination. Patient also denies extremity weakness or tingling. He states that he see's Dr. Garland for urology. Dr. Machuca is his regular doctor. He states that he is on augmentin daily. He is unsure why. 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 that is why he takes it. It is unclear. Abnormal vitals: none Abnormal labs: Hb 10.6, MCV 104, Trop 0.011, UA + for nitrites, bacteria Imaging: CT head negative, CXR neg, ankle XR + for fx. C/S: done by ED for faye. Today: - Pt isn't the best historian. - He states that his ankle is painful if he moves it. 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 Takes ibuprofen for pain at home. - Complains on weakness with movement only. - No other complaints. Travel/Exposure Screening - Travel/Exposure Within Last 30 Days Have you traveled within the last 30 days?: No - Travel/Exposure Within Last Year Have you traveled outside the [place] in the last year?: No - Additonal Travel/Exposure Details Have you been exposed to anyone with a communicable illness?: No - Travel Symptoms Symptom Screening: None Review of Systems Constitutional: Reports: Weakness. Denies: Chills, Fever, Malaise, Night sweats Eyes: Denies: Eye discharge, Eye pain ENT: Denies: Congestion, Ear pain, Epistaxis Respiratory: Denies: Cough, Dyspnea Cardiovascular: Denies: Chest pain, Dyspnea on exertion Endocrine: Denies: Fatigue, Heat or cold intolerance Gastrointestinal: Denies: Abdominal pain, Nausea, Vomiting Genitourinary: Denies: Incontinence, Retention Musculoskeletal: Reports: Arthralgia, Joint swelling. Denies: Back pain Skin: Denies: Bruising, Change in color Neurological: Denies: Abnormal gait, Confusion, Headache, Seizure Psychiatric: Denies: Anxiety Hematological/Lymphatic: Denies: Anemia, Blood Clots Past Medical History - SOCIAL HISTORY Smoking Status: Former smoker - RESPIRATORY Hx Respiratory Disorders: Yes Hx Asthma: Yes (uses inhaler prn) Hx Bronchitis: Yes Hx Pneumonia: Yes - CARDIOVASCULAR Hx Cardio Disorders: Yes Hx Hypertension: Yes - NEURO Hx Neuro Disorders: Yes Hx Dizziness: Yes (vertigo) Hx Weakness: Yes (legs) - GI Hx GI Disorders: No Comment:: constipation - Hx Genitourinary Disorders: Yes Hx Prostate Problems: Yes (cancer no surgery) - ENDOCRINE Hx Endocrine Disorders: No - MUSCULOSKELETAL Hx Musculoskeletal Disorders: Yes Hx Arthritis: Yes Hx Gout: Yes - PSYCH Hx Psych Problems: No - HEMATOLOGY/ONCOLOGY Hx Hematology/Oncology Disorders: Yes Hx Cancer: Yes (prostate) Family Medical History Any Significant Family History?: No H&P Meds/Allergies - Allergies Allergies: Allergies Allergy/AdvReac Type Severity Reaction Status Date / Time iodine Allergy RASH Verified 05/07/18 17:09 Penicillins Allergy PT UNSURE Verified 05/07/18 17:09 OF REACTION - Home Medications Home Medications Medication Instructions Recorded Confirmed Last Taken Amlodipine Besylate/Benazepril 1 cap PO DAILY 09/18/19 09/18/19 Unknown [Lotrel 10-20 mg Capsule] Amoxicillin/Potassium Clav 1 tab PO BID 09/18/19 09/18/19 Unknown [Augmentin 875-125 Tablet] - Active Medications Active Medications: Current Medications Aspirin (Aspirin Chewable) 81 mg PO DAILY [facility] Last Admin: 09/18/19 11:26 Dose: 81 mg Documented by: Betamethasone Valerate () 15 gm TOP BID [facility] Last Admin: 09/18/19 11:26 Dose: 15 gm Documented by: Sodium Chloride () 500 mls @ 0 mls/hr IV .Q0M [facility] Patient Own Med: Fenofibrate Nanocrystallized [ Fenofibrate] 145 Mg 1 each PO DAILY [facility] Last Admin: 09/18/19 11:26 Dose: 1 each Documented by: Patient Own Med: Allopurinol 300 Mg Tab 1 each PO DAILY [facility] Last Admin: 09/18/19 11:00 Dose: 1 each Documented by: Patient Own Med: Amlodipine/Benazapril 10/20mg 1 each PO DAILY [facility] Last Admin: 09/18/19 11:00 Dose: 1 each Documented by: Patient Own Med: Amoxicillin/Potassium Clav 875mg /125mg Tablet 1 each MC BID [facility] Last Admin: 09/18/19 11:00 Dose: 1 each Documented by: Patient Own Med: Fluticasone/Salmeterol 250/50 1 each MC BID [facility] Last Admin: 09/18/19 11:28 Dose: Not Given Documented by: Patient Own Med: Losartan 50 Mg Tablet 1 each PO DAILY [facility] Last Admin: 09/18/19 11:00 Dose: 1 each Documented by: Physical Exam - Vital Signs Vital Signs: Vital Signs - Last 24 Hrs Temp Pulse Pulse Resp BP BP Pulse Ox 09/18/19 12:18 93 H 18 09/18/19 10:08 94 H 18 96 09/18/19 07:21 98 H 20 120/80 97 09/18/19 06:36 93 H 18 128/80 97 09/18/19 05:57 96 H 20 125/69 98 09/18/19 05:30 98.0 F 89 20 123/64 96 - General General Appearance: Alert, Oriented x3, Cooperative, Mild distress (only with movement of the R ankle) Limitations: Physical limitation (ankle fx) - Head Head exam: Atraumatic, Normocephalic, Normal inspection Head exam detail: negative: Abrasion, Contusion, Cuevas's sign, General tenderness, Hematoma, Laceration - Eye Eye exam: Normal appearance. negative: Conjunctival injection, Periorbital swelling, Periorbital tenderness, Scleral icterus - ENT ENT exam: Normal exam, Mucous membranes moist Ear exam: Normal external inspection Nasal Exam: Normal inspection. negative: Active bleeding, Discharge, Dried blood, Foreign body Mouth exam: Normal external inspection. negative: Drooling, Laceration, Muffled voice, Tongue elevation - Neck Neck exam: Normal inspection. negative: Meningismus, Tenderness - Respiratory Respiratory exam: Normal lung sounds bilaterally. negative: Accessory muscle use, Rales, Respiratory distress, Rhonchi, Stridor - Cardiovascular Cardiovascular Exam: Regular rate, Normal rhythm, Normal heart sounds - GI/Abdominal GI/Abdominal exam: Soft, Diminished bowel sounds. negative: Rebound, Rigid, Tenderness - Rectal Rectal exam: Deferred - exam: Deferred - Extremities Extremities exam: Tenderness, Other (Mild TTP along the distal tib/fib right with mild external rotation present, chronic venous changes are present. knee on the L shows mild swelling and TTP). negative: Pedal edema - Back Back exam: Denies: CVA tenderness (R), CVA tenderness (L) - Neurological Neurological exam: Alert, Oriented X3. negative: Motor sensory deficit - Psychiatric Psychiatric exam: Normal affect, Normal mood - Skin Skin exam: Normal color. negative: Abrasion Type of lesion: negative: abrasion Results - Labs Result Diagrams: 09/18/19 05:50 09/18/19 05:50 Labs Last 24 Hours: Laboratory Results - last 24 hr 09/18/19 09/18/19 09/18/19 05:50 05:50 05:50 WBC 8.1 RBC 3.28 L Hgb 10.6 L Hct 34.4 L MCV 104.9 H MCH 32.3 MCHC 30.8 L RDW 14.4 Plt Count 236 MPV 8.4 Gran % 67.0 Lymphocytes % 19.3 Monocytes % 10.6 H Eosinophils % 2.7 Basophils % 0.4 Absolute Neutrophils 5.46 Sodium 142 Potassium 4.3 Chloride 108 H Carbon Dioxide 25.0 Anion Gap 9.0 BUN 27 H Creatinine 1.1 Estimated GFR > 60 Random Glucose 110 H Lactic Acid 1.9 Calcium 9.1 Total Bilirubin 0.60 AST 22 ALT 12 Alkaline Phosphatase 48 Troponin T 0.011 H Total Protein 6.5 L Albumin 3.1 L Globulin 3.4 Albumin/Globulin Ratio 0.9 L Urine Color Urine Appearance Urine pH Ur Specific [place] Urine Protein Urine Glucose (UA) Urine Ketones Urine Blood Urine Nitrite Urine Bilirubin Urine Urobilinogen Ur Leukocyte Esterase Urine RBC Urine WBC Urine Bacteria Urine Mucus 09/18/19 06:05 WBC RBC Hgb Hct MCV MCH MCHC RDW Plt Count MPV Gran % Lymphocytes % Monocytes % Eosinophils % Basophils % Absolute Neutrophils Sodium Potassium Chloride Carbon Dioxide Anion Gap BUN Creatinine Estimated GFR Random Glucose Lactic Acid Calcium Total Bilirubin AST ALT Alkaline Phosphatase Troponin T Total Protein Albumin Globulin Albumin/Globulin Ratio Urine Color Yellow Urine Appearance Cloudy Urine pH 8.0 Ur Specific [place] 1.015 Urine Protein Negative Urine Glucose (UA) Negative Urine Ketones Negative Urine Blood Negative Urine Nitrite Positive H Urine Bilirubin Negative Urine Urobilinogen 0.2 Ur Leukocyte Esterase Trace H Urine RBC 0 - 2 Urine WBC 3 - 5 Urine Bacteria 4+ Urine Mucus Light VTE H&P Assessment - Risk for VTE Risk for VTE: Yes Risk Level: High Risk Assessment Date: 09/18/19 Risk Assessment Time: 13:14 VTE Orders Placed or Will Be Placed: Yes Plan - Inpatient Certification Inpatient Certification: Admit to inpatient care: Based on my medical assessment, after consideration of patient's risk factors (age, co-morbidities and patient presenting symptoms and acuity), I expect that this patient will remain in the hospital greater than or equal to two midnights and that the services needed warrant inpatient care because: Patient Risk Factors: [fracture, decreased mobility] Estimated length of stay: [3] The patient may reasonably be expected to be discharged or transferred to a hospital within 96 hours after admission to [facility]. Services needed: [IV abx, c/s with ortho/ urology] Post hospital care (if known): [] I certify that my determination is in accordance with my understanding of Medicare requirements for reasonable and necessary inpatient services. 09/18/19 13:14 - Detailed Diagnosis and Plan (1) UTI (urinary tract infection) Current Visit: Yes Status: Acute Qualifiers: Urinary tract infection type: site unspecified Hematuria presence: without hematuria Qualified Code(s): N39.0 - Urinary tract infection, site not specified Base Code: N39.0 - URINARY TRACT INFECTION, SITE NOT SPECIFIED Priority: High Comment: - possible cause of recent weakness - Since catheter associated will start rocephin QD - Rocephin and levaquin given in ED - Unclear why pt is on augmentin daily per ED. - Will call Dr. Garland tomorrow and discuss case with him. Possibly consult. - Cx pending - UA + for nitrites and bacteria. (2) Elevated troponin Current Visit: Yes Status: Acute Base Code: R79.89 - OTHER SPECIFIED ABNORMAL FINDINGS OF BLOOD CHEMISTRY Priority: Low Comment: - Indeterminate range in ED 0.0110 - No cardiac sx - Unlikely NV but will trend x 2 and put on potline monitor. (3) Generalized weakness Current Visit: Yes Status: Acute Base Code: R53.1 - WEAKNESS Priority: High Comment: - C/S PT/OT for eval. - Will treat UTI (4) Fracture of distal fibula Current Visit: Yes Status: Acute Qualifiers: Encounter type: initial encounter Fracture type: closed Fracture morphology: other fracture Laterality: right Qualified Code(s): S82.831A - Other fracture of upper and lower end of right fibula, initial encounter for closed fracture Base Code: S82.839A - OTH FRACTURE OF UPPER AND LOWER END OF UNSP FIBULA, INIT Priority: High Comment: - Dr. Ramirez c/s - Advised ED to keep him in a boot. - For pain, tylenol, ibuprofen, lidocaine patch given. (5) Anemia Current Visit: Yes Status: Acute Qualifiers: Anemia type: unspecified type Qualified Code(s): D64.9 - Anemia, unspecified Base Code: D64.9 - ANEMIA, UNSPECIFIED Priority: Medium Comment: - unclear cause - Likely chronic - Will look at vitamins given high MCV (6) DVT prophylaxis Current Visit: No Status: Acute Base Code: [id number] - Comment: - High risk will start lovenox daily. (7) DNR (do not resuscitate) Current Visit: Yes Status: Acute Base Code: Z66 - DO NOT RESUSCITATE Priority: High - Disposition Possibly inpt Rehab
[2019-09-18] MEDS ORDERED: IBUPROFEN 600 MG TABLET PO PRN (13:04)
[2019-09-18] MEDS ORDERED: LIDOCAINE 5% PATCH TOP PRN (13:05)
[2019-09-18] MEDS: SENNOSIDES/DOCUSATE SODIUM UD CAPSULE PO SCH (13:38)
[2019-09-18] MEDS: ENOXAPARIN 40 MG/0.4 ML SYR SQ SCH (13:39)
--- NOTE | 2019-09-18 13:50 | RADIOLOGY REPORT ---
EXAMINATION: Left Knee, One or Two Views EXAM DATE: 09/18/2019 1:31 PM TECHNIQUE: AP and lateral INDICATION: fall onto L knee COMPARISON: None ENCOUNTER: Initial FINDINGS: Large suprapatellar joint effusion. No displaced fracture. There is diffuse demineralization of the o sseous structures. IMPRESSION: Large joint effusion. No displaced fracture. Dictated by: Margie Pena MD on 09/18/2019 1:48 PM. .
[2019-09-18] MEDS ORDERED: NYSTATIN 15 GM TUBE TOP PRN (13:53)
[2019-09-18] MEDS: TRIAMCINOLONE ACET 0.1% CREAM 15G TUBE TOP SCH (22:02)
[2019-09-19] MEDS ORDERED: ZINC OXIDE 28.35 GM TUBE TOP PRN (08:40)
[2019-09-19 09:02] LABS: ABSOLUTE NEUTROPHIL COUNT 3.24; BASO % 0.3 % (0-6); EOS % 7.2 % (0-6); GRAN % 54.6 % (47-80); HEMATOCRIT 32.4 % (42.0-52.0); HEMOGLOBIN 9.7 gm/dl (14.0-18.0); LYMPH % 26.6 % (16-45); MEAN CELL VOLUME 105.9 fl (81-97); MEAN CORPUSCULAR HGB CONC 29.9 g/dl (32-36); MEAN PLATELET VOLUME 8.8 fl (7.4-10.4); MONO % 11.3 % (0-9); PLATELET COUNT 215 K/uL (130-400); RED BLOOD COUNT 3.06 M/uL (4.40-5.70); RED CELL DISTRIBUTION WIDTH 14.5 % (11.5-14.5); WHITE BLOOD COUNT W/O DIFF 5.9 K/uL (4.2-12.2)
[2019-09-19 09:11] LABS: MEAN CORPUSCULAR HEMOGLOBIN 31.6 pg (27-33)
--- NOTE | 2019-09-19 09:15 | Physician Progress Note ---
Subjective - Date Date of Physician Progress Note: 09/19/19 - Subjective Subjective Comment: Pt states he has no concerns today. He denies any CP, SOB, swelling in the legs. He states that he has never had an WI in the past. Objective - Vital Signs Vital Signs: Vital Signs - Last 24 Hrs Temp Pulse Pulse Resp BP BP Pulse Ox 09/19/19 07:11 98.1 F 67 16 109/50 94 L 09/19/19 06:00 97.5 F L 76 18 97/52 95 09/18/19 21:00 89 16 09/18/19 20:00 98.5 F 89 16 138/65 94 L 09/18/19 16:30 99.2 F 88 18 136/69 97 09/18/19 12:18 93 H 18 09/18/19 12:00 97 H 20 09/18/19 10:08 94 H 18 96 09/18/19 09:29 97.6 F 96 H 20 112/56 98 - General General Appearance: Alert, Oriented x3, Cooperative, No acute distress Limitations: Physical limitation (ankle fx) - Head Head exam: Atraumatic, Normocephalic, Normal inspection Head exam detail: negative: Abrasion, Contusion, Cuevas's sign, General tenderness, Hematoma, Laceration - Eye Eye exam: Normal appearance. negative: Conjunctival injection, Periorbital swelling, Periorbital tenderness, Scleral icterus - ENT ENT exam: Normal exam, Mucous membranes moist Ear exam: Normal external inspection Nasal Exam: Normal inspection. negative: Active bleeding, Discharge, Dried blood, Foreign body Mouth exam: Normal external inspection. negative: Drooling, Laceration, Muffled voice, Tongue elevation - Neck Neck exam: Normal inspection. negative: Meningismus, Tenderness - Respiratory Respiratory exam: Normal lung sounds bilaterally. negative: Accessory muscle use, Rales, Respiratory distress, Rhonchi, Stridor - Cardiovascular Cardiovascular Exam: Regular rate, Normal rhythm, Normal heart sounds - GI/Abdominal GI/Abdominal exam: Soft, Diminished bowel sounds. negative: Rebound, Rigid, Tenderness - Rectal Rectal exam: Deferred - exam: Deferred - Extremities Extremities exam: Tenderness, Other (Mild TTP along the distal tib/fib right with mild external rotation present, chronic venous changes are present. knee on the L shows mild swelling and TTP). negative: Pedal edema - Back Back exam: Denies: CVA tenderness (R), CVA tenderness (L) - Neurological Neurological exam: Alert, Oriented X3. negative: Motor sensory deficit - Psychiatric Psychiatric exam: Normal affect, Normal mood - Skin Skin exam: Normal color. negative: Abrasion Type of lesion: negative: abrasion Assessment and Plan - Assessment and Plan (1) UTI (urinary tract infection) Current Visit: Yes Status: Acute Qualifiers: Urinary tract infection type: site unspecified Hematuria presence: without hematuria Qualified Code(s): N39.0 - Urinary tract infection, site not specified Base Code: N39.0 - URINARY TRACT INFECTION, SITE NOT SPECIFIED Priority: High Comment: - possible cause of recent weakness - Since catheter associated will start rocephin QD - Rocephin and levaquin given in ED, rocephin should adequately cover - no need for levaquin. - Spoke with Dr. Garland, he has never prescribed pt augmentin, Looks like it was prescribed as a short course by Dr. Machuca. D/C'd at this time. - Cx pending, last cx was negative for infection. - UA + for nitrites and bacteria. (2) Elevated troponin Current Visit: Yes Status: Acute Base Code: R79.89 - OTHER SPECIFIED ABNORMAL FINDINGS OF BLOOD CHEMISTRY Priority: Low Comment: - Indeterminate range in ED 0.0110 - No cardiac sx - Trended down and then back up to 0.0210 - At that time of elevated trop 0.0210 EKG was done, compared to previous done in ED it is similar - no suspicion for WI/ ischemia. - Will trend, if elevates significantly or EKG changes will c/s cardio. - stop classroom monitor/ enzyme trend when lower values obtained. (3) Generalized weakness Current Visit: Yes Status: Acute Base Code: R53.1 - WEAKNESS Priority: High Comment: - C/S PT/OT for eval. - Will treat UTI (4) Fracture of distal fibula Current Visit: Yes Status: Acute Qualifiers: Encounter type: initial encounter Fracture type: closed Fracture morphology: other fracture Laterality: right Qualified Code(s): S82.831A - Other fracture of upper and lower end of right fibula, initial encounter for closed fracture Base Code: S82.839A - OTH FRACTURE OF UPPER AND LOWER END OF UNSP FIBULA, INIT Priority: High Comment: - Dr. Ramirez c/s, to see pt on Thu - Advised ED to keep him in a boot. - For pain, tylenol, ibuprofen, lidocaine patch given. - Knee XR neg on L except for effusion. (5) Anemia Current Visit: Yes Status: Acute Qualifiers: Anemia type: unspecified type Qualified Code(s): D64.9 - Anemia, unspecified Base Code: D64.9 - ANEMIA, UNSPECIFIED Priority: Medium Comment: - unclear cause - Chronic for several years. - high MCV but folate and B12 wnl, hematology c/s outpt being set up by [facility] . (6) DVT prophylaxis Current Visit: No Status: Acute Base Code: [id number] - Comment: - High risk will start lovenox daily. (7) DNR (do not resuscitate) Current Visit: Yes Status: Acute Base Code: Z66 - DO NOT RESUSCITATE Priority: High Comment: - spoke with pt and confirmed this status. - He is AO x 3 - Disposition Disposition: Possibly inpt Rehab, oupt c/s with hematology. Results - Labs Result Diagrams: 09/19/19 08:33 09/19/19 08:33 Labs Last 24 Hours: Laboratory Results - last 24 hr 09/18/19 09/18/19 09/18/19 12:53 12:55 12:55 WBC RBC Hgb Hct MCV MCH MCHC RDW Plt Count MPV Gran % Lymphocytes % Monocytes % Eosinophils % Basophils % Absolute Neutrophils Troponin T < 0.010 Vitamin B12 379.7 Folate 17.73 09/18/19 09/19/19 19:23 08:33 WBC 5.9 RBC 3.06 L Hgb 9.7 L Hct 32.4 L MCV 105.9 H MCH 31.6 MCHC 29.9 L RDW 14.5 Plt Count 215 MPV 8.8 Gran % 54.6 Lymphocytes % 26.6 Monocytes % 11.3 H Eosinophils % 7.2 H Basophils % 0.3 Absolute Neutrophils 3.24 Troponin T 0.012 H Vitamin B12 Folate DVT/PE Assessment - Risk for VTE Risk for VTE: No Risk Level: High Risk Assessment Date: 09/18/19 Risk Assessment Time: 13:14 VTE Orders Placed or Will Be Placed: Yes - Active Medicaitons Current Medications: Current Medications Acetaminophen (Tylenol 500mg Tab) 1,000 mg PO Q6H PRN PRN Reason: PAIN - MILD TO MODERATE (1-7) Aspirin (Aspirin Chewable) 81 mg PO DAILY [facility] Last Admin: 09/18/19 11:26 Dose: 81 mg Documented by: Betamethasone Valerate () 15 gm TOP BID [facility] Last Admin: 09/18/19 22:02 Dose: 15 gm Documented by: Enoxaparin Sodium (Lovenox) 40 mg SQ DAILY [facility] Last Admin: 09/18/19 13:39 Dose: 40 mg Documented by: Sodium Chloride () 500 mls @ 0 mls/hr IV .Q0M [facility] CEFTRIAXONE 1GM/50ML BAG (Ceftriaxone 1 Gm-D5w Bag) 1 gm in 50 mls @ 100 mls/hr IVPB Q24H [facility] Ibuprofen (Motrin 600mg) 600 mg PO Q6H PRN PRN Reason: pain Last Admin: 09/18/19 22:06 Dose: 600 mg Documented by: Lidocaine (Lidoderm) 1 each TOP DAILY PRN PRN Reason: PAIN - MILD TO MODERATE (1-7) Nystatin () 15 gm TOP ASDIR PRN PRN Reason: RASH Patient Own Med: Fenofibrate Nanocrystallized [ Fenofibrate] 145 Mg 1 each PO DAILY [facility] Last Admin: 09/18/19 11:26 Dose: 1 each Documented by: Patient Own Med: Allopurinol 300 Mg Tab 1 each PO DAILY [facility] Last Admin: 09/18/19 11:00 Dose: 1 each Documented by: Patient Own Med: Amlodipine/Benazapril 10/20mg 1 each PO DAILY [facility] Last Admin: 09/18/19 11:00 Dose: 1 each Documented by: Patient Own Med: Amoxicillin/Potassium Clav 875mg /125mg Tablet 1 each MC BID [facility] Last Admin: 09/18/19 22:02 Dose: 1 each Documented by: Patient Own Med: Losartan 50 Mg Tablet 1 each PO DAILY [facility] Last Admin: 09/18/19 11:00 Dose: 1 each Documented by: Senna/Docusate Sodium (Senna Plus) 1 each PO DAILY [facility] Last Admin: 09/18/19 13:38 Dose: Not Given Documented by: Triamcinolone Acetonide (Kenalog Cream) 15 gm TOP BID [facility] Last Admin: 09/18/19 22:02 Dose: 15 gm Documented by: Zinc Oxide (Desitin) 5 gm TOP ASDIR PRN PRN Reason: RASH AMI Plan - Labs Result Diagrams: 09/19/19 08:33 09/19/19 08:33
[2019-09-19 09:16] LABS: CREATININE 1.3 mg/dL (0.7-1.2)
[2019-09-19] MEDS: ENOXAPARIN 40 MG/0.4 ML SYR SQ SCH (09:20)
[2019-09-19] MEDS: ASPIRIN 81 MG CHEWABLE TABLET PO SCH (09:20)
[2019-09-19] MEDS: CEFTRIAXONE 1GM/50ML BAG 1 GM/50 ML BAG IVPB SCH (09:20)
[2019-09-19] MEDS: SENNOSIDES/DOCUSATE SODIUM UD CAPSULE PO SCH (09:34)
[2019-09-19] MEDS: CLAVULANATE MC SCH (09:35)
[2019-09-19] MEDS: TRIAMCINOLONE ACET 0.1% CREAM 15G TUBE TOP SCH ×2 (09:35→21:59)
[2019-09-19] MEDS: BETAMETHASONE VAL 0.1% TOP SCH ×2 (09:35→21:59)
[2019-09-19] MEDS: AMOXICILLIN MC SCH (09:35)
[2019-09-19] MEDS: FENOFIBRATE NANOCRYSTALLIZED 145 MG PO SCH (09:36)
[2019-09-19] MEDS: ALLOPURINOL 300 MG PO SCH (09:36)
[2019-09-19] MEDS: BREO (FLUTICASONE/VILANTEROL) 200MCG/25MCG INHALER INH SCH (10:35)
--- NOTE | 2019-09-19 11:57 | Rehab Evaluation ---
Patient Information - Patient Information Diagnosis: generalized weakness, UTI, distal fibula fracture, chronic anemia Ordered Treatment: OT Evaluate and Treat Status: Initial Evaluation Surgery: No Past Medical/Surgical Hx: PAST MEDICAL/SURGICAL HISTORY Past Surgical History right cat axillary mass suprapubic cath PMH - Respiratory Hx Respiratory Disorders Yes Hx Asthma Yes: uses inhaler prn Hx Bronchitis Yes Hx Pneumonia Yes PMH - Cardiovascular Hx Cardiovascular Disorders Yes Hx Hypertension Yes PMH - Neuro Hx Neurological Disorders Yes Hx Dizziness Yes: vertigo Hx Weakness Yes: legs PMH - GI Hx Gastrointestinal Disorders No Comment: constipation PMH - Hx Genitourinary Disorders Yes Hx Prostate Problems Yes: cancer no surgery PMH - Endocrine Hx Endocrine Disorders No PMH - Musculoskeletal Hx Musculoskeletal Disorders Yes Hx Arthritis Yes Hx Gout Yes PMH - Psych Hx Psychiatric Problems No PMH - Hematology/Oncology Hx Hematology/Oncology Yes Disorders Hx Cancer Yes: prostate Comment: gets shots for prostate CA Premorbid Status: Detail (Pt lives with spouse in a 2 story house, he stays on the main level. He has a ramp at the entrance. He has a walk in shower with a seat and grab bars, an elevated toilet with grab bars and a grab bar next to his bed. Pt is not ambulatory but uses a transfer chair and a desk chair to get around in his house. He is responsible for meal prep, loading/unloading the garden center manager and sweeping the kitchen floor.) Precautions: [place], Fall, Other (NWB right LE, pt wearing boot on right LE) - Time With Patient Total Time Spent With Patient (Min): 45 Treatment Procedures: Detail (OT eval low complexity) Subjective Information - Subjective Information Per Patient Objective Data - Pain Pain Present: Yes (Pt reports no pain at rest but increased pain in right LE with movement.) - Mental Status Patient Orientation: Oriented x3 - Visual Perception Appears within normal limits for therapeutic activities - ROM Not within normal limits (Ej shoulder flexion limited to approx. 80 degrees, ej elbow, wrist and hand AROM WNL) - Strength/Tone Within normal limits (Ej UE strength grossly 4/5) - Coordination Appears within normal limits for therapeutic activities - Bed Mobility Needs Assist (CG assist to guide right foot to EOB. Pt used side rails to bring upper body into upright.) - Transfers Needs Assist (Mod assist x 2 for sit to stand using walker although pt is unable to maintain NWB status. Pt able to scoot to wheelchair with mod assist x 2 using arm rest on wheelchair.) - Balance Balance Sitting: Good Balance Standing: Poor - Sensation Intact - Gait Detail (Pt is not ambulatory at this time.) - ADL's/IADL's Detail (Pt requiring assist for all self cares at this time. He is using bed wagner and he is catherized.) Therapy Assessment - Therapy Assessment Detail (Pt presents with significantly impaired mobility and decreased Ind with self cares.) Problem List - Problem List Occupational Therapy Problem List: Detail (1. Decreased Ind with functional mobility needed for safe and Ind self cares. 2. Decreased Ind with self care tasks.) Goals - Goals Occupational Therapy Goals: 1. Pt will require min assist x 1 or less for transfers from EOB to wheelchair. 2. Pt will be Ind with toileting tasks including pants management. 3. Pt will be Ind with grooming/hygiene tasks. Prognosis - Prognosis Good Plan - Plan Occupational Therapy Plan: Pt would benefit from IP rehab stay due to decreased functional mobility and decreased Ind with self cares. OT will see pt 2-4 times per week to address goals and problem list as above.
--- NOTE | 2019-09-19 11:57 | Rehab Evaluation ---
Patient Information - Patient Information Diagnosis: UTI, R ankle distal fracture Ordered Treatment: PT Evaluate and Treat Status: Initial Evaluation History: Detail (The patient presented to ED on 07/18/2020 after a fall when transferring to the toilet from his wheelchair sustaining a fracture of R distal fibula.) Past Medical/Surgical Hx: PAST MEDICAL/SURGICAL HISTORY Past Surgical History right cat axillary mass suprapubic cath PMH - Respiratory Hx Respiratory Disorders Yes Hx Asthma Yes: uses inhaler prn Hx Bronchitis Yes Hx Pneumonia Yes PMH - Cardiovascular Hx Cardiovascular Disorders Yes Hx Hypertension Yes PMH - Neuro Hx Neurological Disorders Yes Hx Dizziness Yes: vertigo Hx Weakness Yes: legs PMH - GI Hx Gastrointestinal Disorders No Comment: constipation PMH - Hx Genitourinary Disorders Yes Hx Prostate Problems Yes: cancer no surgery PMH - Endocrine Hx Endocrine Disorders No PMH - Musculoskeletal Hx Musculoskeletal Disorders Yes Hx Arthritis Yes Hx Gout Yes PMH - Psych Hx Psychiatric Problems No PMH - Hematology/Oncology Hx Hematology/Oncology Yes Disorders Hx Cancer Yes: prostate Comment: gets shots for prostate CA Premorbid Status: Detail (The patient was nonambulatory prior to admission using a transfer wheelchair and desk chair for mobility and to transfer to toilet. 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 He lives on the main floor. The bathroom is equipped with a walk in shower with a seat and grab bars and an elevated toilet with grab bars. The patient has a transfer chair and grab bars throughout house.) Precautions: [place], Fall, Other
--- NOTE | 2019-09-19 12:28 | Rehab Evaluation ---
Patient Information - Patient Information Diagnosis: generalized weakness, UTI, distal fibula fracture, chronic anemia Ordered Treatment: PT Evaluate and Treat Status: Initial Evaluation (Addendum to previous PT evaluation.) Surgery: No History: Detail (The patient presented to ED on 07/18/2020 after a fall when transferring to the toilet from his wheelchair sustaining a fracture of R distal fibula.) Past Medical/Surgical Hx: PAST MEDICAL/SURGICAL HISTORY Past Surgical History right cat axillary mass suprapubic cath PMH - Respiratory Hx Respiratory Disorders Yes Hx Asthma Yes: uses inhaler prn Hx Bronchitis Yes Hx Pneumonia Yes PMH - Cardiovascular Hx Cardiovascular Disorders Yes Hx Hypertension Yes PMH - Neuro Hx Neurological Disorders Yes Hx Dizziness Yes: vertigo Hx Weakness Yes: legs PMH - GI Hx Gastrointestinal Disorders No Comment: constipation PMH - Hx Genitourinary Disorders Yes Hx Prostate Problems Yes: cancer no surgery PMH - Endocrine Hx Endocrine Disorders No PMH - Musculoskeletal Hx Musculoskeletal Disorders Yes Hx Arthritis Yes Hx Gout Yes PMH - Psych Hx Psychiatric Problems No PMH - Hematology/Oncology Hx Hematology/Oncology Yes Disorders Hx Cancer Yes: prostate Comment: gets shots for prostate CA Premorbid Status: Detail (Prior to admission the patient was mobile with a transfer chair and office chair. The patient per his report was transferring to toilet independently. 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 He lives on the main floor. The bathroom is equipped wi th a walk in shower with a seat and grab bars and an elevated toilet with grab bars. The patient has a transfer chair and grab bars throughout house.) Precautions: [place], Fall, Other (NWB right LE, pt wearing boot on right LE) - Time With Patient Total Time Spent With Patient (Min): 30 Treatment Procedures: Detail (Initial Evaluation low complexity) Subjective Information - Subjective Information Per Patient (The patient had complaints of pain when moving R ankle during bed mobility and transfers but did not rate his pain using 0-10 pain scale.) Objective Data - Mental Status Patient Orientation: Oriented x3 - ROM Not within normal limits (Actively the patient was unable to extend L knee partially due to pain complaints. The patient's R ankle AROM was not assessed secondary to boot on R LE and precautions due to fibular fracture. All other LE AROM was WFL.) - Strength/Tone Not within normal limits (The patient's LE strength was as follows: LE: hip flexors 3-/5, hip abductors, adductors 4-/5, knee extensors 2+/5, knee flexors 3+/5, ankle musculature 4/5, R LE hip musculature was 3-/5 in hip flexors and 4/5 in hip abductors and adductors, knee extensors 3-/3, knee flexors 4/5, ankle musculature was not tested.) - Bed Mobility Needs Assist (CG for LE's , independent with upper body using bed railing.) - Transfers Needs Assist (Moderate PA of 2 for sit to stand (not to full standing position) and CG for stand to sit and moderate PA for scooting type of transfer from bed to wheelchair. Patient did not maintain NWB status during transfers despite PT's foot underneath his R foot.) - Balance Balance Sitting: Good Balance Standing: Fair (stood to walker and required support of walker.) - Gait Detail (Nonambulatory.) Therapy Assessment - Therapy Assessment Detail (The patient had decreased LE strength, requires moderate assistance of 2 with transfers and is at this point unable to maintain WB status. The patient requires at this point too much assistance to go home with his assisting him. The patient would benefit from subacute rehab to return to previous functional status. PT will see pt as an inpt. while he is in the hospital for transfer training and LE strengthening exercises.) Problem List - Problem List Physical Therapy Problem List: Detail (1) Decreased LE strength 2) Assistance with transfers 3) Difficulty maintaining R LE WB status due to decreased bilateral LE strength 4) Decreased ability to complete prolonged physical activ ity.) Occupational Therapy Problem List: Detail (1. Decreased Ind with functional mobility needed for safe and Ind self cares. 2. Decreased Ind with self care tasks.) Goals - Goals Physical Therapy Goals: 1) The patient will be independent with bed mobility. 2) The patient will transfer with CG / minimal PA of 1 NWB on R LE (scooting type on transfer. 3) Increase LE strength 1/3 muscle grade to help pt. acheive independence with NWB on the R LE transfers. 4) Pt. will tolerate 20 to 30 minutes of physical activity with one rest period. Occupational Therapy Goals: 1. Pt will require min assist x 1 or less for transfers from EOB to wheelchair. 2. Pt will be Ind with toileting tasks including pants management. 3. Pt will be Ind with grooming/hygiene tasks. Plan - Plan Physical Therapy Plan: PT 1 time a day M-F for transfer training, bed mobility, LE strengthening exercises. Occupational Therapy Plan: Pt would benefit from IP rehab stay due to decreased functional mobility and decreased Ind with self cares. OT will see pt 2-4 times per week to address goals and problem list as above.
[2019-09-19] MEDS: BENAZEPRIL PO SCH (13:09)
[2019-09-19] MEDS: AMLODIPINE PO SCH (13:09)
[2019-09-19] MEDS: LOSARTAN 50 MG PO SCH (13:09)
[2019-09-19] MEDS: 0.9 % SODIUM CHLORIDE 1000ML 1,000 ML IV PRN (16:03)
[2019-09-20] MEDS: 0.9 % SODIUM CHLORIDE 1000ML 1,000 ML IV PRN (01:42)
[2019-09-20 07:11] LABS: ABSOLUTE NEUTROPHIL COUNT 3.33; BASO % 0.5 % (0-6); GRAN % 53.1 % (47-80); HEMATOCRIT 29.9 % (42.0-52.0); MEAN CELL VOLUME 105.7 fl (81-97); MEAN CORPUSCULAR HEMOGLOBIN 31.8 pg (27-33); MEAN CORPUSCULAR HGB CONC 30.1 g/dl (32-36); MEAN PLATELET VOLUME 8.9 fl (7.4-10.4); MONO % 12.4 % (0-9); PLATELET COUNT 219 K/uL (130-400); RED BLOOD COUNT 2.83 M/uL (4.40-5.70); RED CELL DISTRIBUTION WIDTH 14.3 % (11.5-14.5); WHITE BLOOD COUNT W/O DIFF 6.3 K/uL (4.2-12.2)
[2019-09-20 07:24] LABS: BLOOD UREA NITROGEN 33 mg/dL (8-23); CREATININE 1.2 mg/dL (0.7-1.2); EST GLOMERULAR FILTRATION RATE > 60 mL/min; GLUCOSE,RANDOM 95 mg/dL (74-109)
[2019-09-20] MEDS: CEFTRIAXONE 1GM/50ML BAG 1 GM/50 ML BAG IVPB SCH (10:02)
--- NOTE | 2019-09-20 10:09 | Physician Progress Note ---
Subjective - Date Date of Physician Progress Note: 09/20/19 - Subjective Subjective Comment: Patient reports no new concerns today. Family at bedside, discussing placement options/preferences with case management. Patient reports adequate pain control at this time. Objective - Vital Signs Vital Signs: Vital Signs - Last 24 Hrs Temp Pulse Pulse Resp BP BP Pulse Ox 09/20/19 08:51 98.5 F 76 18 144/75 94 L 09/20/19 04:00 98.7 F 88 16 137/74 93 L 09/20/19 00:00 98.1 F 94 H 14 119/60 95 09/19/19 21:00 97 H 16 09/19/19 20:00 99.7 F H 97 H 16 108/59 95 09/19/19 16:44 98.0 F 92 H 18 141/68 97 09/19/19 13:00 18 108/57 09/19/19 10:26 70 20 - General General Appearance: Alert, Oriented x3, Cooperative, No acute distress Limitations: Physical limitation (acute fibula fx, baseline wheelchair bound) - Head Head exam: Atraumatic, Normocephalic, Normal inspection Head exam detail: negative: Abrasion, Contusion, Cuevas's sign, General tenderness, Hematoma, Laceration - Eye Eye exam: Normal appearance. negative: Conjunctival injection, Periorbital swelling, Periorbital tenderness, Scleral icterus - ENT ENT exam: Normal exam, Mucous membranes moist Ear exam: Normal external inspection Nasal Exam: Normal inspection. negative: Active bleeding, Discharge, Dried blood, Foreign body Mouth exam: Normal external inspection. negative: Drooling, Laceration, Muffled voice, Tongue elevation - Neck Neck exam: Normal inspection. negative: Meningismus, Tenderness - Respiratory Respiratory exam: Normal lung sounds bilaterally. negative: Accessory muscle use, Rales, Respiratory distress, Rhonchi, Stridor - Cardiovascular Cardiovascular Exam: Regular rate, Normal rhythm, Normal heart sounds Peripheral Pulses: 2+: Radial (R), Radial (L) - GI/Abdominal GI/Abdominal exam: Soft, Diminished bowel sounds. negative: Rebound, Rigid, Tenderness - Rectal Rectal exam: Deferred - exam: Deferred - Extremities Extremities exam: Tenderness, Other (Mild TTP along the distal right tib/fib right with mild external rotation present, chronic venous changes are present). negative: Pedal edema - Back Back exam: Denies: CVA tenderness (R), CVA tenderness (L) - Neurological Neurological exam: Abnormal gait, Alert, Oriented X3. negative: Motor sensory deficit - Psychiatric Psychiatric exam: Normal affect, Normal mood - Skin Skin exam: Pallor. negative: Abrasion Type of lesion: negative: abrasion Assessment and Plan - Assessment and Plan (1) UTI (urinary tract infection) Current Visit: Yes Status: Acute Qualifiers: Urinary tract infection type: site unspecified Hematuria presence: without hematuria Qualified Code(s): N39.0 - Urinary tract infection, site not specified Base Code: N39.0 - URINARY TRACT INFECTION, SITE NOT SPECIFIED Priority: High Comment: 09/20/19: - UA + for nitrites and bacteria - Suprapubic catheter in place, changed 09/03/2019 - Rocephin and levaquin given in ED, rocephin should adequately cover - no need for levaquin. - Urine culture: pseudomonas present - DC Rocephin and switching to Cipro 400mg q12h at this time - Follows with Dr. Garland outpatient (2) Generalized weakness Current Visit: Yes Status: Acute Base Code: R53.1 - WEAKNESS Priority: High Comment: 09/20/19: - Likely due to UTI - PT/OT to eval - Possible DC to [facility] due to fibula fracture and decreased mobility from baseline (3) Fracture of distal fibula Current Visit: Yes Status: Acute Qualifiers: Encounter type: initial encounter Fracture type: closed Fracture morphology: other fracture Laterality: right Qualified Code(s): S82.831A - Other fracture of upper and lower end of right fibula, initial encounter for closed fracture Base Code: S82.839A - OTH FRACTURE OF UPPER AND LOWER END OF UNSP FIBULA, INIT Priority: High Comment: 09/20/19: - X-ray: fracutre through shaft of distal fibula - Dr. Ramirez consulted, to see pt on Thu - Advised patient to be NWB on affected leg and wear boot until further evaluation - For pain, tylenol, ibuprofen, lidocaine patch given; patient reports adequate pain control at this time (4) Elevated troponin Current Visit: Yes Status: Acute Base Code: R79.89 - OTHER SPECIFIED ABNORMAL FINDINGS OF BLOOD CHEMISTRY Priority: Low Comment: 2/18/20: - Indeterminate range in ED 0.011 - No cardiac sx - Troponins trended: 0.011, <0.01, .012, .021, .026, .019 - No significant events on night monitor - At that time of elevated trop 0.0210 EKG was done, compared to previous done in ED it is similar - no suspicion for DC/ ischemia. - Elevation likely due to impaired kidney function (5) Anemia Current Visit: Yes Status: Acute Qualifiers: Anemia type: unspecified type Qualified Code(s): D64.9 - Anemia, unspeci fied Base Code: D64.9 - ANEMIA, UNSPECIFIED Priority: Medium Comment: 09/20/19 - Hgb 10.6, 9.7, 9.0 this admission - unclear cause - Chronic for several years. - high MCV but folate and B12 wnl, hematology consult outpt being set up by Sujey. (6) DVT prophylaxis Current Visit: No Status: Acute Base Code: [id number] - Comment: 09/20/19: - High risk due to age, decreased mobility, and hospitalization - Lovenox 40mg SQ (7) DNR (do not resuscitate) Current Visit: Yes Status: Acute Base Code: Z66 - DO NOT RESUSCITATE Priority: High Comment: 09/20/19: - DNR this admission Results - Labs Result Diagrams: 09/20/19 06:25 09/20/19 06:30 Labs Last 24 Hours: Laboratory Results - last 24 hr 09/19/19 09/19/19 09/20/19 15:22 21:10 06:25 WBC 6.3 RBC 2.83 L Hgb 9.0 L Hct 29.9 L MCV 105.7 H MCH 31.8 MCHC 30.1 L RDW 14.3 Plt Count 219 MPV 8.9 Gran % 53.1 Lymphocytes % 27.0 Monocytes % 12.4 H Eosinophils % 7.0 H Basophils % 0.5 Absolute Neutrophils 3.33 Sodium Potassium Chloride Carbon Dioxide Anion Gap BUN Creatinine Estimated GFR Random Glucose Calcium Troponin T 0.026 H 0.021 H 09/20/19 09/20/19 06:30 Unknown WBC RBC Hgb Hct MCV MCH MCHC RDW Plt Count MPV Gran % Lymphocytes % Monocytes % Eosinophils % Basophils % Absolute Neutrophils Sodium 140 Potassium 4.1 Chloride 109 H Carbon Dioxide 25.0 Anion Gap 6.0 L BUN 33 H Creatinine 1.2 Estimated GFR > 60 Random Glucose 95 Calcium 8.5 L Troponin T 0.019 H DVT/PE Assessment - Risk for VTE Risk for VTE: No Risk Level: High Risk Assessment Date: 09/18/19 Risk Assessment Time: 13:14 VTE Orders Placed or Will Be Placed: Yes - Active Medicaitons Current Medications: Current Medications Acetaminophen (Tylenol 500mg Tab) 1,000 mg PO Q6H PRN PRN Reason: PAIN - MILD (1-4) Aspirin (Aspirin Chewable) 81 mg PO DAILY [facility] Last Admin: 09/19/19 09:20 Dose: 81 mg Documented by: Betamethasone Valerate () 15 gm TOP BID [facility] Last Admin: 09/19/19 21:59 Dose: 15 gm Documented by: Enoxaparin Sodium (Lovenox) 40 mg SQ DAILY [facility] Last Admin: 09/19/19 09:20 Dose: 40 mg Documented by: Ciprofloxacin Lactate (Cipro) 400 mg in 200 mls @ 200 mls/hr IVPB Q12H [facility] Stop: 09/25/19 10:01 Ibuprofen (Motrin 600mg) 600 mg PO Q6H PRN PRN Reason: PAIN - MODERATE (5-7) Last Admin: 09/18/19 22:06 Dose: 600 mg Documented by: Lidocaine (Lidoderm) 1 each TOP DAILY PRN PRN Reason: PAIN - MODERATE (5-7) Nystatin () 15 gm TOP ASDIR PRN PRN Reason: RASH Patient Own Med: Fenofibrate Nanocrystallized [ Fenofibrate] 145 Mg 1 each PO DAILY [facility] Last Admin: 09/19/19 09:36 Dose: 1 each Documented by: Patient Own Med: Allopurinol 300 Mg Tab 1 each PO DAILY [facility] Last Admin: 09/19/19 09:36 Dose: 1 each Documented by: Patient Own Med: Amlodipine/Benazapril 10/20mg 1 each PO DAILY [facility] Last Admin: 09/19/19 13:09 Dose: Not Given Documented by: Patient Own Med: Losartan 50 Mg Tablet 1 each PO DAILY [facility] Last Admin: 09/19/19 13:09 Dose: Not Given Documented by: Senna/Docusate Sodium (Senna Plus) 1 each PO DAILY [facility] Last Admin: 09/19/19 09:34 Dose: Not Given Documented by: Triamcinolone Acetonide (Kenalog Cream) 15 gm TOP BID [facility]IEL[facility] Last Admin: 09/19/19 21:59 Dose: 15 gm Documented by: Zinc Oxide (Desitin) 5 gm TOP ASDIR PRN PRN Reason: RASH AMI Plan - Labs Result Diagrams: 09/20/19 06:25 09/20/19 06:30
[2019-09-20] MEDS: BREO (FLUTICASONE/VILANTEROL) 200MCG/25MCG INHALER INH SCH (10:37)
--- NOTE | 2019-09-20 11:01 | Physical Therapy Tx Note ---
Physical Therapy Tx Note - Treatment Note Tolerated: Fair Total Time Spent With Patient: 25 Physical Therapy Tx Note: Detail (The patient was sitting on the edge of bed when nursing staff arrived. The patient required moderate assist of 1, minimal assist of 1 plus assist to maintain NWB status on the R for sit to stand. The patient required mod PA of 1 with scooting transfer bed to wheelchair and minimal PA of 1 to assist with maintaining NWB status. The patient required maximal PA of 1 for wheelchair to toilet transfer. The patient propelled wheelchair with L LE 7 feet x 1. The patient required less assist with transfers this am and was able to reduce weight bearing on R LE throughout transfers. Patient still has difficulty maintaining NWB status on R and requires max verbal cueing and PT's foot under his R boot cast to maintain NWB. The patient was left in room with nursing staff.) Physical Therapy Problem List: Detail (1) Decreased LE strength 2) Assistance with transfers 3) Difficulty maintaining R LE WB status due to decreased bilateral LE strength 4) Decreased ability to complete prolonged physical activity.) Physical Therapy Goals: 1) The patient will be independent with bed mobility. 2) The patient will transfer with CG / minimal PA of 1 NWB on R LE (scooting type on transfer. 3) Increase LE strength 1/3 muscle grade to help pt. acheive independence with NWB on the R LE transfers. 4) Pt. will tolerate 20 to 30 minutes of physical activity with one rest period. Physical Therapy Plan: PT 1 time a day M-F for transfer training, bed mobility, LE strengthening exercises.
[2019-09-20] MEDS: ASPIRIN 81 MG CHEWABLE TABLET PO SCH (11:05)
[2019-09-20] MEDS: ENOXAPARIN 40 MG/0.4 ML SYR SQ SCH (11:06)
[2019-09-20] MEDS: SENNOSIDES/DOCUSATE SODIUM UD CAPSULE PO SCH (11:06)
[2019-09-20] MEDS: ACETAMINOPHEN 500 MG TABLET PO PRN (11:06)
[2019-09-20] MEDS: CIPROFLOXACIN LACTATE/D5W 400 MG/200 ML BAG IVPB SCH ×2 (11:07→22:05)
[2019-09-20] MEDS: BENAZEPRIL PO SCH (11:09)
[2019-09-20] MEDS: FENOFIBRATE NANOCRYSTALLIZED 145 MG PO SCH (11:09)
[2019-09-20] MEDS: AMLODIPINE PO SCH (11:09)
[2019-09-20] MEDS: ALLOPURINOL 300 MG PO SCH (11:10)
[2019-09-20] MEDS: LOSARTAN 50 MG PO SCH (11:10)
[2019-09-20] MEDS: TRIAMCINOLONE ACET 0.1% CREAM 15G TUBE TOP SCH ×2 (11:11→22:09)
[2019-09-20] MEDS: BETAMETHASONE VAL 0.1% TOP SCH ×2 (11:11→22:10)
[2019-09-21 07:11] LABS: HEMOGLOBIN 8.7 gm/dl (14.0-18.0); MEAN CELL VOLUME 105.8 fl (81-97); MEAN PLATELET VOLUME 8.9 fl (7.4-10.4); PLATELET COUNT 248 K/uL (130-400); RED BLOOD COUNT 2.74 M/uL (4.40-5.70); RED CELL DISTRIBUTION WIDTH 14.3 % (11.5-14.5); WHITE BLOOD COUNT W/O DIFF 5.7 K/uL (4.2-12.2)
[2019-09-21 07:14] LABS: MEAN CORPUSCULAR HEMOGLOBIN 31.7 pg (27-33)
[2019-09-21 07:47] LABS: BLOOD UREA NITROGEN 36 mg/dL (8-23); CREATININE 1.1 mg/dL (0.7-1.2); EST GLOMERULAR FILTRATION RATE > 60 mL/min; GLUCOSE,RANDOM 102 mg/dL (74-109)
--- NOTE | 2019-09-21 08:31 | Medical Records Consult ---
DATE OF CONSULTATION: 09/21/2019 CONSULTING PHYSICIAN: Baudilio Ramirez D.O. REFERRING PHYSICIAN: Freddie Machuca M.D. REASON FOR CONSULTATION: Right ankle fracture. This 89-year-old male gives a history of sustaining injury at home when he states that he fell and doesn't remember exactly how it happened, but does recall that he had ankle pain after the fall. He thinks he landed on his knees, but in any event because of the pain he came into the Emergency Department for evaluation. The patient only transfers from bed to chair and does not ambulate independently. On evaluation in the Emergency Room on 09/18/2019 he was found to have a nondisplaced fracture of the fibular malleolus of the right ankle. He was then placed in a cam walker boot and orthopedic consultation requested. The physical examination today demonstrates some ecchymosis and swelling about the ankle. The ecchymosis is mostly in the anterior lateral aspect of his ankle. He has tenderness over the lateral malleolus. The medial side is minimally tender, but no swelling and no ecchymosis is noted there. He does have atrophy of the skin in the lower legs and mild peripheral edema. He does have good flush to the skin. I have reviewed the radiographs which were previously obtained on hospital admission and these films demonstrate an essentially nondisplaced fracture of the lateral malleolus. I do not see any fractures of the medial malleolus. There is diffuse osteopenia present on these films. DIAGNOSIS: NONDISPLACED FRACTURE OF THE FIBULAR MALLEOLUS OF THE RIGHT ANKLE. The patient is to be transferred to [facility]. I would recommend transfers only and weight bearing for transfers as tolerated with the cam walker boot in place. The boot should be removed on a regular basis, it is not necessary for him to wear the boot in bed. He is to follow-up in the [facility] on 10/05/2019 for re- evaluation, repeat x-ray of his right ankle will be obtained at that time. JOB NUMBER: [id number] MTDD
--- NOTE | 2019-09-21 09:39 | Discharge Summary ---
Providers Discharge Summary Date: 09/21/19 Date of admission: 09/18/19 08:37 Expected Date of Discharge: 09/21/19 Attending physician: JD DIAZ M.D. Primary care physician: Freddie Machuca Consults: Consult Orders 09/18/19 09:32 Consult NOW Consulting Provider: Baudilio Ramirez Physician Instructions: Reason For Exam: Distal fibula fracture Physical Exam - Vital Signs Vital Signs: Vital Signs - Last 24 Hrs Temp Pulse Pulse Resp BP BP Pulse Ox 09/21/19 04:00 98.0 F 84 14 128/61 95 09/20/19 21:00 84 16 09/20/19 20:00 98.3 F 84 16 103/44 94 L 09/20/19 16:00 97.7 F 79 22 118/53 97 09/20/19 12:10 97.4 F L 70 22 107/53 97 09/20/19 10:38 82 18 95 - General General Appearance: Alert, Oriented x3, Cooperative, No acute distress Limitations: Physical limitation (acute fibula fx, baseline wheelchair bound) - Head Head exam: Atraumatic, Normocephalic, Normal inspection Head exam detail: negative: Abrasion, Contusion, Cuevas's sign, General tenderness, Hematoma, Laceration - Eye Eye exam: Normal appearance. negative: Conjunctival injection, Periorbital swelling, Periorbital tenderness, Scleral icterus - ENT ENT exam: Normal exam, Mucous membranes moist Ear exam: Normal external inspection Nasal Exam: Normal inspection. negative: Active bleeding, Discharge, Dried blood, Foreign body Mouth exam: Normal external inspection. negative: Drooling, Laceration, Muffled voice, Tongue elevation - Neck Neck exam: Normal inspection. negative: Meningismus, Tenderness - Respiratory Respiratory exam: Normal lung sounds bilaterally. negative: Accessory muscle use, Rales, Respiratory distress, Rhonchi, Stridor - Cardiovascular Cardiovascular Exam: Regular rate, Normal rhythm, Normal heart sounds Peripheral Pulses: 2+: Radial (R), Radial (L) - GI/Abdominal GI/Abdominal exam: Soft, Diminished bowel sounds. negative: Rebound, Rigid, Tenderness - Rectal Rectal exam: Deferred - exam: Deferred - Extremities Extremities exam: Tenderness, Other (Mild TTP along the distal right tib/fib right with mild external rotation present, chronic venous changes are present). negative: Pedal edema - Back Back exam: Denies: CVA tenderness (R), CVA tenderness (L) - Neurological Neurological exam: Abnormal gait, Alert, Oriented X3. negative: Motor sensory deficit - Psychiatric Psychiatric exam: Normal affect, Normal mood - Skin Skin exam: Pallor. negative: Abrasion Type of lesion: Rash (excoriation on groin), Other (pressure ulcer on coccyx, stage II). negative: abrasion Hospitalization - Hospitalization Admission Diagnosis: Generalized weakness. UTI. Distal fibula fracture. Chronic anemia - Problem List/Discharge Diagnosis (1) UTI (urinary tract infection) Current Visit: Yes Status: Acute Discharge Diagnosis: Urinary tract infection type: site unspecified Hematuria presence: without hematuria Qualified Code(s): N39.0 - Urinary tract infection, site not specified Base Code: N39.0 - URINARY TRACT INFECTION, SITE NOT SPECIFIED Comment: 09/21/19: - UA + for nitrites and bacteria - Suprapubic catheter in place, changed 09/03/2019 - Rocephin and levaquin given in ED, rocephin should adequately cover - no need for levaquin. - Urine culture: pseudomonas present - DC Rocephin and switching to Cipro 400mg q12h at this time - Continue for total course of 10 days for Cipro at dc - Follows with Dr. Garland outpatient (2) Generalized weakness Current Visit: Yes Status: Acute Base Code: R53.1 - WEAKNESS Comment: 09/21/19: - Likely due to UTI - PT/OT to eval - Possible DC to [facility] due to fibula fracture and decreased mobility from baseline (3) Fracture of distal fibula Current Visit: Yes Status: Acute Discharge Diagnosis: Encounter type: initial encounter Fracture type: closed Fracture morphology: other fracture Laterality: right Qualified Code(s): S82.831A - Other fracture of upper and lower end of right fibula, initial encounter for closed fracture Base Code: S82.839A - OTH FRACTURE OF UPPER AND LOWER END OF UNSP FIBULA, INIT Comment: 09/21/19: - X-ray: fracutre through shaft of distal fibula - Dr. Ramirez consulted: weight bearing as tolerated with transfers with cam walker boot in place, remove boot regularly, no boot needed while in bed -Follow-up with Dr. Ramirez 10/05/19 @ 9:30am - For pain, tylenol, ibuprofen, lidocaine patch given; patient reports adequate pain control at this time (4) Pressure ulcer of coccygeal region, stage 2 Current Visit: Yes Status: Acute Base Code: L89.152 - PRESSURE ULCER OF SACRAL REGION, STAGE 2 Comment: 09/21/19: -Ulcer present upon admission -Area to remain open to air -Apply zinc oxide as barrier cream to area -Frequent position changes -Assess area every shift (5) Anemia Current Visit: Yes Status: Acute Discharge Diagnosis: Anemia type: unspecified type Qualified Code(s): D64.9 - Anemia, unsp ecified Base Code: D64.9 - ANEMIA, UNSPECIFIED Comment: 09/21/19 - Hgb 10.6, 9.7, 9.0, 8.7 this admission - unclear cause - Chronic for several years. - high MCV but folate and B12 wnl, hematology consult outpt being set up with Dr. Adhikari (6) DVT prophylaxis Current Visit: No Status: Acute Base Code: GZX9719 - Comment: 09/21/19: - High risk due to age, decreased mobility, and hospitalization - Lovenox 40mg SQ (7) DNR (do not resuscitate) Current Visit: Yes Status: Acute Base Code: Z66 - DO NOT RESUSCITATE C omment: 09/21/19: - DNR this admission - Hospitalization Course Disposition: Inpatient Rehab Facility Hospital Course: PMHx: HTN, Gout, Anemia, indwelling catheter. ED course: 89 yo male presents to ED for evaluation of worsening generalized weakness over the past day. Patient was attempting to transfer from his toilet to his wheelchair when he slipped from the toilet, onto his knees. Patient denies fevers, chills, or recent illness. Patient denies use of anticoagulation medications as well. Patient denies focal weakness or chest pain on examination. Patient also denies extremity weakness or tingling. He states that he see's Dr. Garland for urology. Dr. Machuca is his regular doctor. He states that he is on augmentin daily. He is unsure why. 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 that is why he takes it. It is unclear. Abnormal vitals: none Abnormal labs: Hb 10.6, MCV 104, Trop 0.011, UA + for nitrites, bacteria Imaging: CT head negative, CXR neg, ankle XR + for fx. C/S: done by ED for faye. 09/18/19: - Pt isn't the best historian. - He states that his ankle is painful if he moves it. 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 Takes ibuprofen for pain at home. - Complains on weakness with movement only. - No other complaints. 09/21/28: Patient reports adequate pain control with current medication regimen. Was evaluated by Dr. ramirez for right distal fibula fracture, to remain in cam walker boot with transfers. Will follow-up outpatient with Dr. Ramirez. Complete 10 days of Cipro for UTI, culture positive for pseudomonas. Procedures: Imaging and X-Rays 09/18/19 05:30 HEAD WO CONTRAST [CT] Stat 09/18/19 05:49 CHEST 1 VIEW [RAD] Stat 09/18/19 06:36 ANKLE RIGHT 3 VIEWS [RAD] Stat 09/18/19 12:58 KNEE, LEFT 1 or 2 VIEWS [RAD] Stat Cardiology Procedures 09/18/19 05:35 EKG NOW 09/18/19 12:43 Signal And Communications Maintainer .Continuous 09/19/19 09:44 EKG NOW Abnormal Labs: Abnormal Lab Results 09/18/19 09/18/19 09/18/19 Range/Units 05:50 05:50 05:50 RBC 3.28 L (4.40-5.70) M/uL Hgb 10.6 L (14.0-18.0) gm/dl Hct 34.4 L (42.0-52.0) % MCV 104.9 H (81-97) fl MCHC 30.8 L (32-36) g/dl Monocytes % 10.6 H (0-9) % Eosinophils % (0-6) % Eosinophil Count (0-6) % Potassium (3.4-4.5) mmol/L Chloride 108 H (98-107) mmol/L Anion Gap (7-16) BUN 27 H (8-23) mg/dL Creatinine (0.7-1.2) mg/dL Random Glucose 110 H (74-109) mg/dL Calcium (8.8-10.2) mg/dL Troponin T 0.011 H (0-0.010) ng/mL Total Protein 6.5 L (6.6-8.7) g/dL Albumin 3.1 L (4.0-5.0) g/dL Albumin/Globulin Ratio 0.9 L (1.1-1.8) Urine Nitrite (NEGATIVE) Ur Leukocyte Esterase (NEGATIVE) 09/18/19 09/18/19 09/19/19 Range/Units 06:05 19:23 08:33 RBC 3.06 L (4.40-5.70) M/uL Hgb 9.7 L (14.0-18.0) gm/dl Hct 32.4 L (42.0-52.0) % MCV 105.9 H (81-97) fl MCHC 29.9 L (32-36) g/dl Monocytes % 11.3 H (0-9) % Eosinophils % 7.2 H (0-6) % Eosinophil Count (0-6) % Potassium (3.4-4.5) mmol/L Chloride (98-107) mmol/L Anion Gap (7-16) BUN (8-23) mg/dL Creatinine (0.7-1.2) mg/dL Random Glucose (74-109) mg/dL Calcium (8.8-10.2) mg/dL Troponin T 0.012 H (0-0.010) ng/mL Total Protein (6.6-8.7) g/dL Albumin (4.0-5.0) g/dL Albumin/Globulin Ratio (1.1-1.8) Urine Nitrite Positive H (NEGATIVE) Ur Leukocyte Esterase Trace H (NEGATIVE) 09/19/19 09/19/19 09/19/19 Range/Units 08:33 08:33 15:22 RBC (4.40-5.70) M/uL Hgb (14.0-18.0) gm/dl Hct (42.0-52.0) % MCV (81-97) fl MCHC (32-36) g/dl Monocytes % (0-9) % Eosinophils % (0-6) % Eosinophil Count (0-6) % Potassium 4.6 H (3.4-4.5) mmol/L Chloride (98-107) mmol/L Anion Gap (7-16) BUN 34 H (8-23) mg/dL Creatinine 1.3 H (0.7-1.2) mg/dL Random Glucose 130 H (74-109) mg/dL Calcium (8.8-10.2) mg/dL Troponin T 0.021 H 0.026 H (0-0.010) ng/mL Total Protein (6.6-8.7) g/dL Albumin (4.0-5.0) g/dL Albumin/Globulin Ratio (1.1-1.8) Urine Nitrite (NEGATIVE) Ur Leukocyte Esterase (NEGATIVE) 09/19/19 09/20/19 09/20/19 Range/Units 21:10 06:25 06:30 RBC 2.83 L (4.40-5.70) M/uL Hgb 9.0 L (14.0-18.0) gm/dl Hct 29.9 L (42.0-52.0) % MCV 105.7 H (81-97) fl MCHC 30.1 L (32-36) g/dl Monocytes % 12.4 H (0-9) % Eosinophils % 7.0 H (0-6) % Eosinophil Count (0-6) % Potassium (3.4-4.5) mmol/L Chloride 109 H (98-107) mmol/L Anion Gap 6.0 L (7-16) BUN 33 H (8-23) mg/dL Creatinine (0.7-1.2) mg/dL Random Glucose (74-109) mg/dL Calcium 8.5 L (8.8-10.2) mg/dL Troponin T 0.021 H (0-0.010) ng/mL Total Protein (6.6-8.7) g/dL Albumin (4.0-5.0) g/dL Albumin/Globulin Ratio (1.1-1.8) Urine Nitrite (NEGATIVE) Ur Leukocyte Esterase (NEGATIVE) 09/20/19 09/21/19 09/21/19 Range/Units Unknown 06:25 06:25 RBC 2.74 L (4.40-5.70) M/uL Hgb 8.7 L (14.0-18.0) gm/dl Hct 29.0 L (42.0-52.0) % MCV 105.8 H (81-97) fl MCHC 30.0 L (32-36) g/dl Monocytes % (0-9) % Eosinophils % (0-6) % Eosinophil Count 12.0 H (0-6) % Potassium (3.4-4.5) mmol/L Chloride (98-107) mmol/L Anion Gap (7-16) BUN 36 H (8-23) mg/dL Creatinine (0.7-1.2) mg/dL Random Glucose (74-109) mg/dL Calcium (8.8-10.2) mg/dL Troponin T 0.019 H (0-0.010) ng/mL Total Protein (6.6-8.7) g/dL Albumin (4.0-5.0) g/dL Albumin/Globulin Ratio (1.1-1.8) Urine Nitrite (NEGATIVE) Ur Leukocyte Esterase (NEGATIVE) Condition at Discharge: (2) Stable Discharge Medications - Discharge Medications Prescriptions: Ciprofloxacin HCl [Cipro] 500 mg PO Q12HR #18 tablet Home Medications: Ambulatory Orders Allopurinol [Zyloprim] 300 mg PO DAILY 06/23/16 [Last Taken 04/07/18] Aspirin Chewable 81 mg PO DAILY 06/23/16 [Last Taken 04/07/18] Steven/D3/Mag11/Zinc/Industrial Controls Technician/Vickey/Bor [Caltrate 600+D Plus Tablet] 1 each PO BID 06/23/16 [Last Taken 04/07/18] Fenofibrate Nanocrystallized [Fenofibrate] 145 mg PO DAILY 06/23/16 [Last Taken 04/07/18] Fluticasone Propion/Salmeterol [Advair 250-50 Diskus] 1 each IH BID 06/23/16 [Last Taken 04/07/18] Losartan Potassium [Cozaar] 50 mg PO DAILY 06/23/16 [Last Taken 04/07/18] Betamethasone/Propylene Glyc [Diprolene 0.05% Ointment] 15 gm TP BID 01/26/18 [Last Taken 04/07/18] Amlodipine Besylate/Benazepril [Lotrel 10-20 mg Capsule] 1 cap PO DAILY 09/18/19 [Last Taken Unknown] Acetaminophen [Tylenol 500Mg Tab] 1,000 mg PO Q6H PRN tablet 09/21/19 [Last Taken Unknown] Ciprofloxacin HCl [Cipro] 500 mg PO Q12HR #18 tablet 09/21/19 [Last Taken Unknown] Ibuprofen [Motrin 600Mg] 600 mg PO Q6H PRN tablet 09/21/19 [Last Taken Unknown] Lidocaine Patch [Lidoderm] 1 each TOP DAILY PRN patch 09/21/19 [Last Taken Unknown] Nystatin 15 gm TOP ASDIR PRN cream 09/21/19 [Last Taken Unknown] Sennosides/Docusate Sodium [Senna Plus] 1 each PO DAILY capsule 09/21/19 [Last Taken Unknown] Zinc Oxide [Desitin] 5 gm TOP ASDIR PRN tube 09/21/19 [Last Taken Unknown] Discharge Plan - Discharge Instructions Activity at Discharge: As Per Physical Therapy Diet at Discharge: Advance to Usual Diet Additional Instructions: Your next dose of Cipro is due 09/21/2019 @ 1999 Follow up with your PCP, Dr. Machuca, after you are discharged from [facility] [place] [facility] Appointment with 10/18/19 at 9:00AM at [facility] for nail care Appointment with Dr. Garland on 11/15/19 at 10:30AM at [facility] for prostate cancer re-check -Please complete bloodwork as ordered 1wk prior to appointment. Lab order has been provided. If still in rehab, have this done there. Appointment with Dr. Ramirez 10/03/2019 @ 9:30am at [facility] Dr. Adhikari's office (economic analyst) will contact you to set-up an appointment regarding your chronic anemia. Quality Measures - Quality Measures Quality Measures: Advance Directives, Documentation of Current Medications in Medical Record, Elder Maltreatment Screen and Follow-Up Plan, Screening for High Blood Pressure and F/U Documented - Current Medications Quality Measure: Measure #130: Documentation of Current Medications Documentation of Current Medications: <Current Medications Documented/Reviewed> [G8427] - Blood Pressure Screening Quality Measure: Screening for High Blood Pressure and Follow-Up Documented Does Patient Have Any of the Following: Active Dx of HTN Blood Pressure Classification: Pre-Hypertensive BP Reading Systolic Measurement: 120 Diastolic Measurement: 80 Screening for High Blood Pressure: Patient Exclusion, Hx of HTN [G9744] - Advance Directives Quality Measure: Measure #47: Care Plan Advance Directives Established: Yes (Fabi Rodarte/DPOA) Advance Directives Information Provided To Patient: Already Provided Advance Directives on File: No Living Will: No Power of Sinter Machine Operator: Yes Power of Sinter Machine Operator Name: NELIDA RODARTE Advance Care Planning: <Care Plan/Decision Maker Documented; Discussed & Documented> [1123F] - Elder Abuse Suspicion Index Screening: Elder Abuse Suspicion Index Screening Rely on people for bathing, dressing, shopping, banking, etc: No Prevented from getting food, clothes, medication, etc: No Made to feel shamed or threatened by someone: No Forced to sign papers or use money against will: No Feel afraid, touched in ways not wanted or hurt physically: No Poor eye contact, withdrawn, malnourished, cuts or bruises: No Screening Result: Negative result EASI Reference Information: Stephanie SOLO, Dinah C, Chichi D, Selma Bravo.Development and validation of a tool to assist physicians identification of elder abuse: The Elder Abuse Suspicion Index (EASI ). Journal of Elder Abuse and Neglect, 2008; 20 (3): 276-300. - Elder Maltreatment Screen Quality Measures: Elder Maltreatment Screen and Follow-Up Plan Elder Maltreatment Screen: <Negative, No Follow-Up Plan Required> [G2104]
--- NOTE | 2019-09-21 09:53 | Occupational Therapy Tx Note ---
Occupational Therapy Tx Note - Treatment Note Tolerated: Fair Total Time Spent With Patient: 50 (ADL) Occupational Therapy Treatment Note: Detail (S: Pt resting in bed, ready to go to rehab. O: Supine to sit with verbal cues and with use of bed rail. Pt donned briefs with custom motorcycle painter and mod assist to start over feet/boot as well as max assist to thread catheter. Sit to stand with mod to max assist x 2 to walker and max assist to pull briefs over hips. Pt donned pants with max assist due to boot and catheter. Pt required mod assist x 2 for sit to stand and max assist to pull pants over hips. Pt donned shirt Indly. Pt able to don left tennis shoe Indly in sitting. Sit to supine with min assist and pt scooted up in bed with max assist x 2. A: Pt Ind with upper body dressing, mod to max assist with lower body dressing, mod to max assist x 2 for sit to stand.) Occupational Therapy Problem List: Detail (1. Decreased Ind with functional mobility needed for safe and Ind self cares. 2. Decreased Ind with self care tasks.) Occupational Therapy Goals: 1. Pt will require min assist x 1 or less for transfers from EOB to wheelchair. 2. Pt will be Ind with toileting tasks including pants management. 3. Pt will be Ind with grooming/hygiene tasks. Prognosis: Good Occupational Therapy Plan: Pt would benefit from IP rehab stay due to decreased functional mobility and decreased Ind with self cares. OT will see pt 2-4 times per week to address goals and problem list as above.
[2019-09-21] MEDS: BREO (FLUTICASONE/VILANTEROL) 200MCG/25MCG INHALER INH SCH (10:03)
[2019-09-21] MEDS: ASPIRIN 81 MG CHEWABLE TABLET PO SCH (10:43)
[2019-09-21] MEDS: ACETAMINOPHEN 500 MG TABLET PO PRN (10:43)
[2019-09-21] MEDS: ENOXAPARIN 40 MG/0.4 ML SYR SQ SCH (10:44)
[2019-09-21] MEDS: CIPROFLOXACIN LACTATE/D5W 400 MG/200 ML BAG IVPB SCH (11:23)
[2019-09-21] MEDS ORDERED: CIPROFLOXACIN HCL 500 MG TABLET PO ONE (11:26)
[2019-09-21] MEDS: BETAMETHASONE VAL 0.1% TOP SCH (11:32)
[2019-09-21] MEDS: TRIAMCINOLONE ACET 0.1% CREAM 15G TUBE TOP SCH (11:33)
[2019-09-21] MEDS: BENAZEPRIL PO SCH (11:34)
[2019-09-21] MEDS: AMLODIPINE PO SCH (11:34)
[2019-09-21] MEDS: LOSARTAN 50 MG PO SCH (11:35)
[2019-09-21] MEDS: ALLOPURINOL 300 MG PO SCH (11:35)
[2019-09-21] MEDS: SENNOSIDES/DOCUSATE SODIUM UD CAPSULE PO SCH (11:36)
[2019-09-21] MEDS: FENOFIBRATE NANOCRYSTALLIZED 145 MG PO SCH (11:36)
== END 2019-09-21 12:00 | DRG 690 ==
LOC: ER 05:27 → MEDSURG 08:37
PROVIDERS: ADMIT Family Medicine; ATTEND Family Medicine
DX: N39.0 Urinary tract infection, site not specified (principal); S82.831A Other fracture of upper and lower end of right fibula, initial encounter for closed fracture; W18.11XA Fall from or off toilet without subsequent striking against object, initial encounter; L89.152 Pressure ulcer of sacral region, stage 2; D64.9 Anemia, unspecified; R79.89 Other specified abnormal findings of blood chemistry; I10 Essential (primary) hypertension; R42 Dizziness and giddiness; C61 Malignant neoplasm of prostate; Z96.0 Presence of urogenital implants; M19.90 Unspecified osteoarthritis, unspecified site
CPT/HCPCS: 70450; 71045; 80048; 80053; 81001; 82607; 82746; 83605; 84484; 85025; 85027; 90670; 93005; 93010; 94640; 96365; 99223; 99233; 99239; 99285; J0696; J1650